=== PATIENT | male | born 1950 | race Caucasian/White ===

== ENCOUNTER 2020-12-07 08:47 | Inpatient (IN) | payer OTHER, MEDICARE, SELFPAY ==
--- NOTE | ~2020-12-07 | CT_ITS ---
EXAMINATION: CT abdomen pelvis wo con EXAM DATE: 12/08/2020 11:23 INDICATION: Nonverbal. Worsening mental status change. Clinical concern for infection TECHNIQUE: Spiral CT of the abdomen and pelvis was performed without contrast. Axial, coronal and s agittal images were reviewed. The dose-length product (DLP) for this examination was 729.79 mGy-cm. The exposure was tailored according to patient size (auto mA exposure control), and iterative recons truction (ASIR) was used as additional dose reduction technique. Comparison is made to prior examinat ion from 10/28/2019. FINDINGS: Bladder is not identified, probably been surgically resected with right ostomy, an ileal po uch. There is also a left lower quadrant colostomy, and Seb's pouch. Surgical changes are intact . There is mild right-sided hydronephrosis without obstructing stone identified, unchanged compared t o last year. No left hydronephrosis. Interval development of lobular right middle lobe nodule highly suspicious for lung cancer measuring 1.5 cm, just above the diaphragm. No other nodules to suggest this is metastatic disease. The liver, spleen, adrenal glands and pancreas are unremarkable. Gallbladder is unremarkable. No bi liary obstruction. The prostate is unremarkable. There is no retroperitoneal or pelvic lymphadenopa thy. There is mild scattered arteriosclerotic disease. Probable identification of a normal appendix. No pericecal inflammation. The stomach and small gratn l are unremarkable. There is expected amount of colonic stool. No free intraperitoneal gas. The heart is normal in size. There are no pericardial or pleural effusions. There are no osteoblastic o r osteolytic lesions identified. IMPRESSION: 1. New lobular right middle lobe nodule most consistent with primary lung cancer. 2. Mild chronic right-sided hydronephrosis without obstructing stone. 3. No acute findings. Reviewed, dictated and finalized at location B. . CREATIVE DIRECTOR IMPRESSION: 1. New lobular right middle lobe nodule most consistent with primary lung canc er. 2. Mild chronic right-sided hydronephrosis without obstructing stone. 3. No acute findings.
--- NOTE | ~2020-12-07 | CT_ITS ---
EXAMINATION: CT brain wo con EXAM DATE: 12/07/2020 11:35 INDICATION: Hallucinations, h/o metastatic colorectal cancer. Unsteady gait, fall today. Hallucinatio ns. TECHNIQUE: Spiral CT of the head was performed without contrast. Axial, coronal and sagittal images were reviewed. The dose-length product (DLP) for this examination was 354.92 mGy-cm. The exposure w as tailored according to patient size, and iterative reconstruction (ASIR) was used as additional dos e reduction technique. There is no prior study for comparison. FINDINGS: There is no acute intraparenchymal hemorrhage. No evidence of intraparenchymal brain mass lesion. No evidence of acute infarction. There is no mass effect or midline shift. The ventricles are normal in size. There are no extra-axial collections. Mild atrophy. There are no acute calvarial fractures. The orbits are unremarkable. Soft tissue is unremarkable. The visualized sinuses and ma stoid air cells are well aerated. IMPRESSION: 1. No acute intracranial findings. Reviewed, dictated and finalized at location B. KING PRESS OPERATOR
--- NOTE | ~2020-12-07 | CT_ITS ---
EXAMINATION: CT brain wo con EXAM DATE: 12/08/2020 11:23 INDICATION: Altered mental status, confusion. Nonverbal. TECHNIQUE: Spiral CT of the head was performed without contrast. Axial, coronal and sagittal images were reviewed. The dose-length product (DLP) for this examination was 354.92 mGy-cm. (Large field of view utilized due to kyphosis). The exposure was tailored according to patient size, and iterative r econstruction (ASIR) was used as additional dose reduction technique. Comparison is made to prior exa mination from 12/07/2020. FINDINGS: There is no acute intraparenchymal hemorrhage. No evidence of intraparenchymal brain mass lesion. No evidence of acute infarction. Mild cerebral atrophy. There is no mass effect or midline shift. The ventricles are normal in size. There are no extra-axial collections. Mild atrophy. There are no acute calvarial fractures. The orbits are unremarkable. Soft tissue is unremarkable. The vi sualized sinuses and mastoid air cells are well aerated. There is no significant interval change. IMPRESSION: 1. No acute intracranial findings. OR FRONT END DEVELOPER Reviewed, dictated and finalized at location B.
--- NOTE | 2020-12-07 08:51 | PC.NURSE ---
[facility] CONTACTED FOR RECORDS FROM PTS VISIT IN ER YESTERDAY.
--- NOTE | 2020-12-07 08:53 | ED.AMS ---
HPI - Altered Mental Status General Chief Complaint: Altered Mental Status Stated Complaint: AMBULANCE Time Seen by Provider: 12/07/20 08:52 Source: patient and family Mode of arrival: EMS Limitations: no limitations History of Present Illness HPI narrative: 70-year-old man with a history of Parkinson's brought to the ER today by EMS after his sister called because he continues to have hallucinations. His sister states that he has been upset because he thought they were trying to kill him and that they were abusing him. He has also been seeing people that are not present. He told us today that he woke up in a stranger's basement. His sister states this is a common finding when he has urinary tract infection. She also states that he fell out of bed this morning. Blood sugar in the ambulance was 96. Six days ago his oncologist saw him in [place] who prescribed Cipro for a presumed UTI. His symptoms persisted and he was seen at [facility] in [place] last night for this problem. He was sent home with no change in treatment much of the frustration of his sister. He has had a decreased appetite but has had no vomiting, blood in his stools, chest pain, difficulty breathing, difficulty swallowing, fever, cough or sick exposures. MD complaint: other (Hallucinations) Onset (ago): day(s) Timing confirmed by: caregiver (Sister) Severity: moderate Consistency of symptoms: waxing and waning Context: change in medication and other (Recent UTI) Associated symptoms: loss of appetite Related Data Home Medications Medication Instructions Recorded Confirmed amantadine HCl 100 mg PO TID 12/07/20 12/07/20 carbidopa-levodopa 2 tablet PO TID 12/07/20 12/07/20 ciprofloxacin HCl 500 mg PO BID 12/07/20 12/07/20 donepezil 10 mg PO HS 12/07/20 12/07/20 midodrine 5 mg PO BID 12/07/20 12/07/20 Allergies Allergy/AdvReac Type Severity Reaction Status Date / Time No Known Allergies Allergy Verified 12/07/20 09:12 Review of Systems Constitutional: Constitutional: Denies chills and Denies fever(s) Eyes: Eyes: Denies change in vision and Denies photophobia ENT: Denies dysphagia, Denies nasal congestion and Denies sore throat Cardiovascular: Cardiovascular: Denies chest pain and Denies radiating jaw, neck or arm pain Respiratory: Respiratory: Denies cough and Denies dyspnea Gastrointestinal: Gastrointestinal: Denies abdominal pain, Denies nausea and Denies vomiting Comments: No hematochezia Musculoskeletal: Musculoskeletal: Reports back pain (He states this is chronic) Integumentary/Breasts: Skin/Breast: Denies pruritus, Denies erythema and Denies rash Neurologic: Denies vertigo Hematologic/Lymphatic: Hematologic/Lymphatic: Denies easy bleeding and Denies easy bruising Allergic/Immunologic: Allergic/Immunologic: Denies lip swelling and Denies throat swelling PMFSH Past Medical History Medical History Colorectal cancer Parkinsons disease Urinary tract infection Surgical History Surgical History History of urostomy Ileostomy in place Social History Social History (Updated 12/07/20 @ 09:31 by Rommel Brown MD) Alcohol intake: former Substance use: never Living arrangements: with family Additional living arrangements comments: Lives with his sister who provides care for him. He is not ambulatory. Exam Const: General: no acute distress, alert and ill appearing chronically Orientation/consciousness: patient oriented x3 HENMT: Face and sinus: normal facial exam Mouth: Yes moist mucous membranes Throat: posterior oropharynx normal Eyes: Conjunctivae: conjunctivae normal Pupils: Equal, round and reactive pupils present EOM: EOMs intact bilaterally Resp: Effort & Inspection: normal respiratory effort and not labored Auscultation: clear to auscultation bilaterally, no rales, no rhonchi a
[2020-12-07 09:14] VITALS: BP 142/76; PULSE 85; RESP 18; TEMP 36.9; O2SAT 100
--- NOTE | 2020-12-07 09:15 | ECG_ITS ---
Measurements Intervals [place] Rate: 91 P: 48 VT: 140 QRS: -10 QRSD: 97 T: 0 QT: 354 QTc: 436 Interpretive Statements SINUS RHYTHM EARLY PRECORDIAL R/S TRANSITION VOLTAGE CRITERIA FOR LVH BORDERLINE ST-T WAVE ABNORMALITY- INFERIOR LEADS BASELINE ARTIFACT- I, II, III, AVR, AVL, AVF, V1-V6 BORDERLINE ECG Electronically Signed On 12-07-2020 10:15:50 STATUARY PAINTER by Anthony Quijano D.O.
[2020-12-07] MEDS: SODIUM CHLORIDE 0.9% IV 1,000 ML 999 ML IV CONT (09:36)
[2020-12-07 09:38] LABS: Basophils Absolute Auto 0.03 K/mm3 (0.00-0.10); Basophils Percent Auto 0.5 % (0.0-1.0); Eosinophils Absolute Auto 0.02 K/mm3 (0.02-0.50); Eosinophils Percent Auto 0.3 % (1.0-6.0); Hematocrit 35.2 % (37.0-46.0); Hemoglobin 11.3 g/dL (12.4-15.3); Immature Granulocyte Absolute 0.03 K/mm3 (0.00-0.00); Immature Granulocyte Percent A 0.5 % (0.0-0.0); Lymphocytes Absolute Auto 0.57 K/mm3 (1.10-4.50); Lymphocytes Percent Auto 9.1 % (18.0-42.0); Mean Corpuscular HGB Conc 32.1 g/dL (32.0-36.0); Mean Corpuscular Volume 93.4 fL (78.0-102.0); Mean Platelet Volume 8.8 fl (8.7-11.0); Monocytes Absolute Auto 0.68 K/mm3 (0.10-0.90); Monocytes Percent Auto 10.8 % (2.0-11.0); Neutrophils Percent Auto 78.8 % (50.0-70.0); Platelet Count Result 155 K/mm3 (150-420); Red Blood Count 3.77 M/mm3 (4.70-6.10); White Blood Count 6.3 K/mm3 (4.8-10.8)
[2020-12-07 09:53] LABS: Alanine Aminotransferase 16 U/L (16-63); Albumin Level 3.9 g/dL (3.4-5.0); Alkaline Phosphatase 148 U/L (46-116); Anion Gap 12 mmol/L (8-16); Aspartate Amino Transferase 14 U/L (15-37); Bilirubin,Total 0.7 mg/dL (0.00-1.00); Blood Urea Nitrogen 23 mg/dL (7-18); CRP 2.9 mg/dL (0.0-0.9); Calcium 9.4 mg/dL (8.5-10.1); Carbon Dioxide 26 mmol/L (21-32); Chloride 107 mmol/L (98-108); Estimated CRCL calculation 26 ml/min; Estimated Glomerular Filt Rate 25; Glucose 102 mg/dL (70-99); Lipase 50 U/L (73-393); Osmolality Calculated 303 mOsm/kg (285-295); Potassium 4.5 mmol/L (3.5-5.1); Sodium 145 mmol/L (136-145); Total Protein 7.3 g/dL (6.4-8.2); Troponin I 43.9 ng/L (0.00-60.4)
--- NOTE | 2020-12-07 09:53 | PC.NURSE ---
Pt given home morning medications per dr whitlock order. Pt given amantadine 100mg, midrodrine 5mg, and 2 tabs of carbidopa-levodopa 25/100mg po. dosages and times verified with family and pt.
[2020-12-07 09:54] LABS: INR 1.1; Partial Thromboplastin Time 26.5 SEC (23.90-30.70); Prothrombin Time 11.4 Seconds (9.50-12.10)
[2020-12-07 09:56] LABS: Lactic Acid Reflex 1.6 mmol/L (0.4-2.0)
[2020-12-07 11:02] LABS: Add Urine Microscopic? YES; Appearance Urine Clear (Clear); Bilirubin Urine Negative (Negative); Blood Urine 2+ (Negative); Color Urine Yellow (Yellow); Glucose Urine UA Negative (Negative); Ketones Urine 1+ (Negative); Leukocyte Esterase Ur Trace (Negative); Nitrate Urine Negative (Negative); Protein Urine 1+ (Negative); Specific Grav Ur >= 1.030 (1.010-1.020); Urobilinogen Urine 0.2 mg/dL (0.2-1.0); pH Urine 5.5 (5.0-8.0)
[2020-12-07 11:10] LABS: Bacteria Urine Trace /hpf; RBC Urine 21-50 /hpf (0-2)
[2020-12-07 11:15] VITALS: BP 145/97; PULSE 91; RESP 18
[2020-12-07] MEDS: SODIUM CHLORIDE 0.9% IV 1,000 ML 150 ML IV CONT (11:35)
[2020-12-07 12:20] VITALS: BP 150/89; PULSE 79; RESP 18
[2020-12-07 12:40] VITALS: BP 106/81; PULSE 95; RESP 20; TEMP 37.6; O2SAT 98; BMI 22.8
--- NOTE | 2020-12-07 12:40 | ADMGEN ---
This patient, Viktor Burk, was admitted to 2nd Floor Room 206-1 for UTI and ARF. Patient/family oriented to hospital policies and general routines including ID bracelet, bed and alarms, visiting hours, pain management, procedures, bathroom and other care routines, personal items, smoking policy, room service/diet, and visiting hours. Colostomy and Urostomy care provided. Lunch tray delivered, patient required minimal to moderate assist to eat. Call light and belongings at side. Information on how to activate the Rapid Response Team has been discussed. Patient/Family are encouraged to report perceived risks to care and to ask questions if they do not understand what they are told or what they should do.
[2020-12-07] MEDS: ENOXAPARIN 30 MG/0.3 ML SYRINGE SUB-Q (14:38)
--- NOTE | 2020-12-07 15:19 | PM.IMHP ---
H&P: HPI History of Present Illness Date/Time: 12/07/20 15:19 Chief Complaint: Hallucinations r/t possible UTI Narrative: Viktor Burk is a 70 year old male was brought to the ER by EMS for hallucinations per his sisters report. Pt was unable to provide any HPI information d/t his medical situation and this HPI is based on ER documentation, conversation with Dr. Brown, and Pt's sister. The sister was the historian for the Pt in the ER. The sister stated the following: Pt thought they were trying to kill him and they were abusing him. (on assessment there was no evidence of abuse to this Pt). Furthermore, the sister, per ER report, stated this Pt's normal status is usual when he has a UTI, he fell OOB this AM. Pt saw his Oncologist 6 days ago and was given a script for his UTI. He also went to [facility] last night and was then sent home with no changes to the Tx for his condition. Pt has had decreased appetite, no vomiting, blood in stools, CP, breathing difficulty, swallowing difficulty, fever, cough, or sick exposures. PMHx of Parkinson's Review of Systems Review of Systems: ROS unobtainable: Yes unobtainable due to medical condition PMFSH Past Medical History Medical History Colorectal cancer Parkinsons disease Urinary tract infection Surgical History Surgical History History of urostomy Ileostomy in place Social History Social History Smoking status: Never smoker Alcohol intake: never Substance use: never Living arrangements: with family Additional living arrangements comments: Lives with his sister who provides care for him. He is not ambulatory. Gender identity (if verbalized by the patient): Male Spiritual care concerns: No Meds Home Medications and Allergies Home Medications Medication Instructions Recorded Confirmed Type amantadine HCl 100 mg PO TID 12/07/20 12/07/20 History carbidopa-levodopa 2 tablet PO TID 12/07/20 12/07/20 History ciprofloxacin HCl 500 mg PO BID 12/07/20 12/07/20 History donepezil 10 mg PO HS 12/07/20 12/07/20 History midodrine 5 mg PO BID 12/07/20 12/07/20 History Allergies Allergy/AdvReac Type Severity Reaction Status Date / Time No Known Allergies Allergy Verified 12/07/20 09:12 Vital Signs Vital Signs - 24 hr 12/07/20 09:14 12/07/20 11:15 12/07/20 12:20 Temperature 98.5 F Pulse Rate 85 91 79 Respiratory Rate 18 18 18 Blood Pressure 142/76 H 145/97 H 150/89 H Pulse Oximetry 100 12/07/20 12:40 Temperature 99.6 F Pulse Rate 95 Respiratory Rate 20 Blood Pressure 106/81 Pulse Oximetry 98 Exam Const: General: no acute distress, alert and ill appearing Nutritional Appearance: average body habitus Resp: Effort & Inspection: normal respiratory effort Auscultation: clear to auscultation bilaterally Cardio: Jugular venous distension: no JVD Rate: regular rate Heart sounds: S1 normal heart sound present and S2 normal heart sound present GI: Inspection: other (Colostomy in place with pale stoma, Ileostomy in place, both draining) GI Palp: Yes Soft to palpation and No Tenderness to palpation present (GI) Auscultation: normal bowel sounds Neuro: General: oriented to person (when I called his name he looked at me, unable to speak) Speech: Other speech findings present (Neuro) (mumbled) Motor exam (neuro): Motor fasciculations present (rather mild when Pt asked to move) Extrem: General: no joint enlargement and no pedal edema H&P: Results Labs Labs: Short CBC 12/07/20 Range/Units 09:29 WBC 6.3 (4.8-10.8) K/mm3 Hgb 11.3 L (12.4-15.3) g/dL Hct 35.2 L (37.0-46.0) % Plt Count 155 (150-420) K/mm3 [facility] 12/07/20 09:29 Sodium 145 Potassium 4.5 Chloride 107 Carbon Dioxide 26 BUN 23 H Creatinine 2.52 H Glu
[2020-12-07 16:40] VITALS: BP 146/99; PULSE 83; RESP 20; TEMP 37.4; O2SAT 97
[2020-12-07] MEDS: CIPROFLOXACIN 500 MG TAB PO (19:49)
--- NOTE | 2020-12-07 20:00 | PC.NURSE ---
Patient is calling out and confused. Appears to be experiencing hallucinations, Becomes verbally aggressive attempts made to exit bed.
[2020-12-07] MEDS: SODIUM CHLORIDE 0.9% IV 1,000 ML 100 ML (20:12)
[2020-12-07] MEDS: DONEPEZIL HCL 5 MG TABLET 10 MG PO (20:57)
[2020-12-07] MEDS: ACETAMINOPHEN 500 MG TABLET 1000 MG PO (20:57)
--- NOTE | 2020-12-07 22:00 | PC.NURSE ---
Patient continues to be confused-calls out, hallucinations. Can become belligerent when redirected.
[2020-12-07 23:54] VITALS: BP 149/94; PULSE 82; RESP 18; TEMP 37.7; O2SAT 98
--- NOTE | 2020-12-08 00:37 | PC.NURSE ---
Patient continues to be experience confusion. Slamming elbo against railing. Attempting to exit bed.
--- NOTE | 2020-12-08 03:38 | PC.NURSE ---
Patient resting. Continues to have spasm of legs anr arms Fluids continue as ordered
[2020-12-08] MEDS: SODIUM CHLORIDE 0.9% IV 1,000 ML 100 ML IV CONT ×2 (05:30→17:19)
[2020-12-08 05:36] LABS: Basophils Absolute Auto 0.03 K/mm3 (0.00-0.10); Basophils Percent Auto 0.7 % (0.0-1.0); Eosinophils Absolute Auto 0.17 K/mm3 (0.02-0.50); Eosinophils Percent Auto 3.8 % (1.0-6.0); Hematocrit 31.8 % (37.0-46.0); Hemoglobin 9.9 g/dL (12.4-15.3); Immature Granulocyte Absolute 0.01 K/mm3 (0.00-0.00); Immature Granulocyte Percent A 0.2 % (0.0-0.0); Lymphocytes Absolute Auto 0.88 K/mm3 (1.10-4.50); Lymphocytes Percent Auto 19.8 % (18.0-42.0); Mean Corpuscular HGB Conc 31.1 g/dL (32.0-36.0); Mean Corpuscular Hemoglobin 29.6 pg (27.0-31.0); Mean Corpuscular Volume 95.2 fL (78.0-102.0); Mean Platelet Volume 9.2 fl (8.7-11.0); Monocytes Absolute Auto 0.44 K/mm3 (0.10-0.90); Monocytes Percent Auto 9.9 % (2.0-11.0); Neutrophils Absolute Auto 2.9 K/mm3 (1.7-7.2); Neutrophils Percent Auto 65.6 % (50.0-70.0); Platelet Count Result 125 K/mm3 (150-420); Red Blood Count 3.34 M/mm3 (4.70-6.10); Red Cell Distribution Width 13.9 % (11.6-14.4); White Blood Count 4.4 K/mm3 (4.8-10.8)
[2020-12-08 05:52] LABS: Alanine Aminotransferase 9 U/L (16-63); Albumin Level 3.3 g/dL (3.4-5.0); Alkaline Phosphatase 127 U/L (46-116); Anion Gap 14 mmol/L (8-16); Aspartate Amino Transferase 22 U/L (15-37); Bilirubin,Total 0.5 mg/dL (0.00-1.00); Blood Urea Nitrogen 21 mg/dL (7-18); Calcium 8.3 mg/dL (8.5-10.1); Carbon Dioxide 21 mmol/L (21-32); Chloride 108 mmol/L (98-108); Estimated CRCL calculation 33 ml/min; Estimated Glomerular Filt Rate 33; Glucose 71 mg/dL (70-99); Osmolality Calculated 297 mOsm/kg (285-295); Potassium 4.2 mmol/L (3.5-5.1); Sodium 143 mmol/L (136-145); Total Protein 6.2 g/dL (6.4-8.2)
[2020-12-08 07:50] VITALS: BP 165/101; PULSE 81; RESP 20; TEMP 37.1; O2SAT 100
[2020-12-08 09:14] LABS: Hemoglobin 10.4 g/dL (12.4-15.3); Mean Corpuscular HGB Conc 31.5 g/dL (32.0-36.0); Mean Corpuscular Hemoglobin 29.9 pg (27.0-31.0); Mean Corpuscular Volume 94.8 fL (78.0-102.0); Mean Platelet Volume 9.2 fl (8.7-11.0); Platelet Count Result 133 K/mm3 (150-420); Red Blood Count 3.48 M/mm3 (4.70-6.10); Red Cell Distribution Width 13.8 % (11.6-14.4); White Blood Count 5.8 K/mm3 (4.8-10.8)
[2020-12-08] MEDS: amantadine HCL 100 MG CAPSULE PO ×3 (09:38→17:19)
[2020-12-08] MEDS: CARBIDOPA/LEVODOPA 25/100 MG CR TABLET 2 TABLET PO ×3 (09:39→17:19)
[2020-12-08] MEDS: MIDODRINE HCL 2.5 MG TABLET 5 MG PO ×2 (09:39→17:19)
[2020-12-08] MEDS: CIPROFLOXACIN 500 MG TAB PO (09:39)
[2020-12-08 09:47] LABS: Ammonia 22 umol/L (11-32); Magnesium 1.9 mg/dL (1.8-2.4)
--- NOTE | 2020-12-08 11:20 | WPDPN ---
Progress Note: A&P Assessment and Plan (1) Acute UTI: Code(s): N39.0 - Urinary tract infection, site not specified Status: Acute Assessment and Plan: Ciprofloxacin 500 mg daily, and vancomycin with pharm to dose and follow, Urine Cx Pending, Urostomy in place UA positive for blood leukocyte Estrace, RBCs WBCs (2) Acute on chronic kidney failure: Qualifiers: Acute renal failure type: unspecified Chronic kidney disease stage: unspecified stage Qualified Code(s): N17.9 - Acute kidney failure, unspecified; N18.9 - Chronic kidney disease, unspecified Code(s): N17.9 - Acute kidney failure, unspecified; N18.9 - Chronic kidney disease, unspecified Status: Acute Assessment and Plan: Improving on admission pt received 1 L NS bolus Continue IV hydration BUN 23-->, Cr 2.52-->2.02, eCrCl 26-->33, eGFR 25-->33, Continue monitor I&O, avoid nephrotoxic medications Renal dose medication (3) Delirium due to general medical condition: Code(s): F05 - Delirium due to known physiological condition Status: Acute Assessment and Plan: Possibly secondary to urinary tract infection versus noncompliant with medication versus acute kidney injury CT of head on 12/07/2020-unremarkable, repeat pending CT of the abdomen and pelvis pending Ammonia and electrolytes within normal limits Continue neurochecks (4) Parkinsons disease: Code(s): G20 - Parkinson's disease Status: Acute Assessment and Plan: 12/07/2020 Continue Amentadine, and Sinamet increased to home dosage (5) Discoloration of skin of finger: Code(s): L81.9 - Disorder of pigmentation, unspecified Status: Acute Assessment and Plan: Possibly secondary to RA versus hypothyroidism versus vascular disease TSH, ESR pending CRP on admission elevated Lactic acid within normal limits Patient does not appear to have any limitation with movement in his fingers Review of Systems Review of Systems: ROS unobtainable: Yes unobtainable due to mental status Exam Narrative: Exam Narrative: GENERAL: This is a well-nourished, well-developed patient, in no apparent distress. HEAD: normocephalic, atraumatic. EYES: PERRL. Sclera clear/white. Vision is grossly intact. EARS: External ears normal, auditory canals clear and without drainage, TMs normal without perforation. Hearing grossly intact. NOSE: External nose normal with no obvious nasal discharge, nares without redness, no rhinorrhea. THROAT: Mucous membranes moist, posterior pharynx clear. NECK: Neck supple, non-tender without lymphadenopathy, masses or thyromegaly. CARDIOVASCULAR: Regular rate and rhythm without murmurs, gallops, or rubs. RESPIRATORY: Clear to auscultation. Breath sounds equal bilaterally. No wheezes, rales, or rhonchi. GASTROINTESTINAL: Abdomen soft, non-tender, nondistended. Bowel sounds are active. No hepato-splenomegaly, or palpable masses. No guarding. SKIN: warm, intact with no suspicious lesions or rash, good texture and turgor. Discoloration fingers NEURO: Patient with involuntary body movement and lethargic EXTREMITIES: Normal range of motion. No edema. No calf tenderness. Negative Homans sign bilaterally. BACK: Nontender without deformity or crepitance. No flank tenderness. Objective Data Vital Signs Vital Signs: Vital Signs - 24 hr 12/07/20 12:20 12/07/20 12:40 12/07/20 16:40 Temperature 99.6 F 99.3 F Pulse Rate 79 95 83 Respiratory Rate 18 20 20 Blood Pressure 150/89 H 106/81 146/99 H Pulse Oximetry 98 97 12/07/20 23:54 12/08/20 07:50 Temperature 99.9 F H 98.8 F Pulse Rate 82 81 Respiratory Rate 18 20 Blood Pressure 149/94 H 165/101 H Pulse Oximetry 98 100 Intake/Output Intake/Output: Intake & Output 12/05/20 12/06/20 12/07/20 12/08/20 23:59 23:59 23:59 23:59 Intake Total 2970 1300 Output Total 325 500 Balance 2645 800 Meds/Results Medications: Active Me
[2020-12-08 11:59] LABS: Thyroid Stimulating Hormone Reflex 0.31 u/IU/mL (0.36-3.74)
[2020-12-08 12:15] LABS: Free T4 Free Thyroxine Reflex 1.14 ng/dL (0.76-1.46)
[2020-12-08 12:38] LABS: Erythrocyte Sedimentation Rate 28 mm/hr (0-20)
[2020-12-08] MEDS: ENOXAPARIN 30 MG/0.3 ML SYRINGE SUB-Q (13:37)
[2020-12-08 16:40] VITALS: BP 141/70; PULSE 64; RESP 18; TEMP 36.6; O2SAT 100
[2020-12-08] MEDS: DONEPEZIL HCL 5 MG TABLET 10 MG PO (21:33)
[2020-12-09] VITALS: BP 164/75; PULSE 54; RESP 18; TEMP 36.7; O2SAT 100
[2020-12-09] MEDS: SODIUM CHLORIDE 0.9% IV 1,000 ML 100 ML IV CONT (02:47)
[2020-12-09 06:02] LABS: Hematocrit 33.6 % (37.0-46.0); Hemoglobin 10.8 g/dL (12.4-15.3); Mean Corpuscular HGB Conc 32.1 g/dL (32.0-36.0); Mean Corpuscular Hemoglobin 30.1 pg (27.0-31.0); Mean Corpuscular Volume 93.6 fL (78.0-102.0); Mean Platelet Volume 9.3 fl (8.7-11.0); Platelet Count Result 125 K/mm3 (150-420); Red Blood Count 3.59 M/mm3 (4.70-6.10); Red Cell Distribution Width 13.6 % (11.6-14.4); White Blood Count 7.7 K/mm3 (4.8-10.8)
[2020-12-09 06:26] LABS: Albumin Level 3.1 g/dL (3.4-5.0); Alkaline Phosphatase 122 U/L (46-116); Anion Gap 12 mmol/L (8-16); Aspartate Amino Transferase 24 U/L (15-37); Bilirubin,Total 0.4 mg/dL (0.00-1.00); Blood Urea Nitrogen 19 mg/dL (7-18); Calcium 8.5 mg/dL (8.5-10.1); Carbon Dioxide 22 mmol/L (21-32); Chloride 106 mmol/L (98-108); Estimated CRCL calculation 43 ml/min; Estimated Glomerular Filt Rate 45; Glucose 88 mg/dL (70-99); Osmolality Calculated 291 mOsm/kg (285-295); Potassium 3.6 mmol/L (3.5-5.1); Sodium 140 mmol/L (136-145); Total Protein 5.6 g/dL (6.4-8.2)
[2020-12-09 06:52] LABS: Alanine Aminotransferase 11 U/L (16-63)
[2020-12-09 07:30] VITALS: BP 169/76; PULSE 61; RESP 18; TEMP 36.5; O2SAT 100
[2020-12-09] MEDS: CARBIDOPA/LEVODOPA 25/100 MG CR TABLET 2 TABLET PO ×3 (08:41→17:00)
[2020-12-09] MEDS: MIDODRINE HCL 2.5 MG TABLET 5 MG PO ×2 (08:42→17:00)
[2020-12-09] MEDS: amantadine HCL 100 MG CAPSULE PO ×3 (08:45→17:00)
--- NOTE | 2020-12-09 12:42 | P.PN_ITS ---
Progress Note: A&P Assessment and Plan (1) Acute UTI: Code(s): N39.0 - Urinary tract infection, site not specified <ROYA Mckinley - Last Filed: 12/09/20 12:49> Status: Acute <Francis YelitzaROYA Ayala - Last Filed: 12/09/20 12:49> Assessment and Plan: * Ciprofloxacin 500 mg completed , and vancomycin with pharm to dose and follow, * Urine Cx Pending, * Culture from outside hospital with the growth Klebsiella, enterococcus faecalis * Urostomy in place * UA positive for blood leukocyte Estrace, RBCs WBCs <ROYA Mckinley - Last Filed: 12/09/20 12:49> (2) Acute on chronic kidney failure: Qualifiers: Acute renal failure type: unspecified Chronic kidney disease stage: unspecified stage Qualified Code(s): N17.9 - Acute kidney failure, unspecified; N18.9 - Chronic kidney disease, unspecified <ROYA Mckinley - Last Filed: 12/09/20 12:49> Code(s): N17.9 - Acute kidney failure, unspecified; N18.9 - Chronic kidney disease, unspecified <ROYA Mckinley - Last Filed: 12/09/20 12:49> Status: Acute <ROYA Mckinley - Last Filed: 12/09/20 12:49> Assessment and Plan: * Improving * on admission pt received 1 L NS bolus * Continue IV hydration * BUN 23--> -->19, Cr 2.52-->2.02-->1.53, eCrCl 26-->33-->43, eGFR 25-->33-->45, * Continue monitor I&O, * avoid nephrotoxic medications * Renal dose medication <ROYA Mckinley - Last Filed: 12/09/20 12:49> (3) Delirium due to general medical condition: Code(s): F05 - Delirium due to known physiological condition <ROYA Mckinley - Last Filed: 12/09/20 12:49> Status: Acute <ROYA Mckinley - Last Filed: 12/09/20 12:49> Assessment and Plan: * Resolved * Possibly secondary to urinary tract infection versus noncompliant with medication versus acute kidney injury * CT of head on 12/07/2020-unremarkable, repeat pending * CT of the abdomen and pelvis pending * Ammonia and electrolytes within normal limits * Continue neurochecks <Francis Stanton ROYA - Last Filed: 12/09/20 12:49> (4) Parkinsons disease: Code(s): G20 - Parkinson's disease <Francis Stanton ROYA - Last Filed: 12/09/20 12:49> Status: Acute <Francis Stanton ROYA - Last Filed: 12/09/20 12:49> Assessment and Plan: 12/07/2020 Continue Amentadine, and Sinamet increased to home dosage <Francis Stanton ROYA - Last Filed: 12/09/20 12:49> (5) Discoloration of skin of finger: Code(s): L81.9 - Disorder of pigmentation, unspecified <Francis Stanton ROYA - Last Filed: 12/09/20 12:49> Status: Acute <Francis Stanton ROYA - Last Filed: 12/09/20 12:49> Assessment and Plan: * Possibly secondary to RA versus hypothyroidism versus vascular disease * TSH slightly decreased not significantly, * CRP on admission elevated * Lactic acid within normal limits * Patient does not appear to have any limitation with movement in his fingers <Francis TorreGLENNY AyalaKemi - Last Filed: 12/09/20 12:49> Review of Systems Review of Systems: All systems reviewed & are unremarkable except as noted in HPI and below (12 point system review) <Francis Stanton HEALTH CENTER ASSOCIATEKemi - Last Filed: 12/09/20 12:49> Exam Narrative: Exam Narrative: GENERAL: This is a well-nourished, well-developed patient, in no apparent distress. HEAD: normocephalic, atraumatic. EYES: PERRL. Sclera clear/white. Vision is grossly intact. EARS: External ears norm
--- NOTE | 2020-12-09 12:42 | WPDPN ---
Progress Note: A&P Assessment and Plan (1) Acute UTI: Code(s): N39.0 - Urinary tract infection, site not specified <ROYA Mckinley - Last Filed: 12/09/20 12:49> Status: Acute <Francis YelitzaROYA Ayala - Last Filed: 12/09/20 12:49> Assessment and Plan: Ciprofloxacin 500 mg completed , and vancomycin with pharm to dose and follow, Urine Cx Pending, Culture from outside hospital with the growth Klebsiella, enterococcus faecalis Urostomy in place UA positive for blood leukocyte Estrace, RBCs WBCs <ROYA Mckinley - Last Filed: 12/09/20 12:49> (2) Acute on chronic kidney failure: Qualifiers: Acute renal failure type: unspecified Chronic kidney disease stage: unspecified stage Qualified Code(s): N17.9 - Acute kidney failure, unspecified; N18.9 - Chronic kidney disease, unspecified <ROYA Mckinley - Last Filed: 12/09/20 12:49> Code(s): N17.9 - Acute kidney failure, unspecified; N18.9 - Chronic kidney disease, unspecified <ROYA Mckinley - Last Filed: 12/09/20 12:49> Status: Acute <ROYA Mckinley - Last Filed: 12/09/20 12:49> Assessment and Plan: Improving on admission pt received 1 L NS bolus Continue IV hydration BUN 23--> -->19, Cr 2.52-->2.02-->1.53, eCrCl 26-->33-->43, eGFR 25-->33-->45, Continue monitor I&O, avoid nephrotoxic medications Renal dose medication <ROYA Mckinley - Last Filed: 12/09/20 12:49> (3) Delirium due to general medical condition: Code(s): F05 - Delirium due to known physiological condition <ROYA Mckinley - Last Filed: 12/09/20 12:49> Status: Acute <ROYA Mckinley - Last Filed: 12/09/20 12:49> Assessment and Plan: Resolved Possibly secondary to urinary tract infection versus noncompliant with medication versus acute kidney injury CT of head on 12/07/2020-unremarkable, repeat pending CT of the abdomen and pelvis pending Ammonia and electrolytes within normal limits Continue neurochecks <Francis Stanton ROYA - Last Filed: 12/09/20 12:49> (4) Parkinsons disease: Code(s): G20 - Parkinson's disease <Francis Stanton ROYA - Last Filed: 12/09/20 12:49> Status: Acute <Francis Stanton ROYA - Last Filed: 12/09/20 12:49> Assessment and Plan: 12/07/2020 Continue Amentadine, and Sinamet increased to home dosage <Francis Stanton ROYA - Last Filed: 12/09/20 12:49> (5) Discoloration of skin of finger: Code(s): L81.9 - Disorder of pigmentation, unspecified <Francis Stanton ROYA - Last Filed: 12/09/20 12:49> Status: Acute <Francis Stanton ROYA - Last Filed: 12/09/20 12:49> Assessment and Plan: Possibly secondary to RA versus hypothyroidism versus vascular disease TSH slightly decreased not significantly, CRP on admission elevated Lactic acid within normal limits Patient does not appear to have any limitation with movement in his fingers <Francis Stanton ROYA - Last Filed: 12/09/20 12:49> Review of Systems Review of Systems: All systems reviewed & are unremarkable except as noted in HPI and below (12 point system review) <Francis Stanton ROYA - Last Filed: 12/09/20 12:49> Exam Narrative: Exam Narrative: GENERAL: This is a well-nourished, well-developed patient, in no apparent distress. HEAD: normocephalic, atraumatic. EYES: PERRL. Sclera clear/white. Vision is grossly intact. EARS: External ears normal, auditory canals clear and without drainage, TMs normal without perforation. Hearing grossly intact. NOSE: External nose normal with no obvious nasal discharge, nares without redness, no rhinorrhea. THROAT: Mucous membranes moist, posterior pharynx clear. NECK: Neck supple, non-tender without lymphadenopathy, masses or thyromegaly. CARDIOVASCULAR: Regular rate and rhythm without murmurs, gallops, o
[2020-12-09] MEDS: ENOXAPARIN 30 MG/0.3 ML SYRINGE SUB-Q (13:54)
[2020-12-09 16:00] VITALS: BP 140/70; PULSE 71; RESP 16; TEMP 36.6; O2SAT 100
--- NOTE | 2020-12-09 18:39 | PC.NURSE ---
Urostomy right lower abdomen removed. Cleansed area with soap and water. Skin prep applied to skin. Urostomy bag placed without difficulty. Skin under the ostomy bag intact. No redness or open areas noted.
[2020-12-09] MEDS: DONEPEZIL HCL 5 MG TABLET 10 MG PO (21:56)
[2020-12-10] VITALS: BP 140/75; PULSE 58; RESP 18; TEMP 36.2; O2SAT 97
[2020-12-10] MEDS: ACETAMINOPHEN 500 MG TABLET 1000 MG PO ×2 (04:45→21:03)
[2020-12-10 05:46] LABS: Hematocrit 32.8 % (37.0-46.0); Hemoglobin 10.3 g/dL (12.4-15.3); Immature Platelet Fraction Pct 1.2 % (1.0-7.0); Mean Corpuscular HGB Conc 31.4 g/dL (32.0-36.0); Mean Corpuscular Hemoglobin 28.9 pg (27.0-31.0); Mean Corpuscular Volume 92.1 fL (78.0-102.0); Mean Platelet Volume 9.8 fl (8.7-11.0); Platelet Count Result 150 K/mm3 (150-420); Red Blood Count 3.56 M/mm3 (4.70-6.10); Red Cell Distribution Width 13.6 % (11.6-14.4); White Blood Count 5.1 K/mm3 (4.8-10.8)
[2020-12-10 06:09] LABS: Alanine Aminotransferase 10 U/L (16-63); Alkaline Phosphatase 120 U/L (46-116); Anion Gap 12 mmol/L (8-16); Aspartate Amino Transferase 15 U/L (15-37); Bilirubin,Total 0.4 mg/dL (0.00-1.00); Blood Urea Nitrogen 14 mg/dL (7-18); Calcium 8.5 mg/dL (8.5-10.1); Carbon Dioxide 24 mmol/L (21-32); Chloride 105 mmol/L (98-108); Estimated CRCL calculation 44 ml/min; Estimated Glomerular Filt Rate 46; Glucose 141 mg/dL (70-99); Osmolality Calculated 294 mOsm/kg (285-295); Potassium 3.3 mmol/L (3.5-5.1); Sodium 141 mmol/L (136-145); Total Protein 5.6 g/dL (6.4-8.2)
[2020-12-10 08:00] VITALS: BP 134/78; PULSE 78; RESP 18; TEMP 36.6; O2SAT 96
[2020-12-10] MEDS: MIDODRINE HCL 2.5 MG TABLET 5 MG PO ×2 (09:02→17:14)
[2020-12-10] MEDS: CARBIDOPA/LEVODOPA 25/100 MG CR TABLET 2 TABLET PO ×3 (09:03→17:14)
[2020-12-10] MEDS: amantadine HCL 100 MG CAPSULE PO ×3 (09:04→17:29)
[2020-12-10] MEDS: POTASSIUM CHLORIDE 20 MEQ TABLET 40 MEQ PO (10:19)
--- NOTE | 2020-12-10 13:09 | P.PN_ITS ---
Progress Note: A&P Assessment and Plan (1) Acute UTI: Code(s): N39.0 - Urinary tract infection, site not specified Status: Acute Assessment and Plan: * Ciprofloxacin 500 mg completed , and vancomycin with pharm to dose and follow, * Urine Cx with the growth of Enterococcus faecalis and faecium. Patient will need to remain hospitalized for IV antibiotics of vancomycin for at least 5 days * Culture from outside hospital with the growth Klebsiella, enterococcus faecalis * Urostomy in place * UA positive for blood leukocyte Estrace, RBCs WBCs (2) Acute on chronic kidney failure: Qualifiers: Acute renal failure type: unspecified Chronic kidney disease stage: unspecified stage Qualified Code(s): N17.9 - Acute kidney failure, unspecified; N18.9 - Chronic kidney disease, unspecified Code(s): N17.9 - Acute kidney failure, unspecified; N18.9 - Chronic kidney disease, unspecified Status: Acute Assessment and Plan: * Improving * on admission pt received 1 L NS bolus * Continue IV hydration * BUN 23--> -->19-->14, Cr 2.52-->2.02-->1.53-->1.51, eCrCl 26-->33-->43-->44, eGFR 25-->33-->45-->46, * Continue monitor I&O, * avoid nephrotoxic medications * Renal dose medication (3) Delirium due to general medical condition: Code(s): F05 - Delirium due to known physiological condition Status: Acute Assessment and Plan: * Resolved * Possibly secondary to urinary tract infection versus noncompliant with medication versus acute kidney injury * CT of head on 12/07/2020-unremarkable, repeat pending * CT of the abdomen and pelvis -no acute findings * Ammonia and electrolytes within normal limits * Continue neurochecks (4) Parkinsons disease: Code(s): G20 - Parkinson's disease Status: Acute Assessment and Plan: 12/07/2020 Continue Amentadine, and Sinamet increased to home dosage (5) Discoloration of skin of finger: Code(s): L81.9 - Disorder of pigmentation, unspecified Status: Acute Assessment and Plan: * Resolved * Possibly secondary to RA versus hypothyroidism versus vascular disease * TSH slightly decreased not significantly, * CRP on admission elevated * Lactic acid within normal limits * Patient does not appear to have any limitation with movement in his fingers Review of Systems Review of Systems: All systems reviewed & are unremarkable except as noted in HPI and below (12 point system review) Exam Narrative: Exam Narrative: GENERAL: This is a well-nourished, well-developed patient, in no apparent distress. HEAD: normocephalic, atraumatic. EYES: PERRL. Sclera clear/white. Vision is grossly intact. EARS: External ears normal, auditory canals clear and without drainage, TMs normal without perforation. Hearing grossly intact. NOSE: External nose normal with no obvious nasal discharge, nares without redness, no rhinorrhea. THROAT: Mucous membranes moist, posterior pharynx clear. NECK: Neck supple, non-tender without lymphadenopathy, masses or thyromegaly. CARDIOVASCULAR: Regular rate and rhythm without murmurs, gallops, or rubs. RESPIRATORY: Clear to auscultation. Breath sounds equal bilaterally. No wheezes, rales, or rhonchi. GASTROINTESTINAL: Abdomen soft, non-tender, nondistended. Bowel sounds are active. No hepato-splenomegaly, or palpable masses. Urostomy and colostomy in place SKIN: warm, intact with no suspicious lesions or rash, good texture and turgor. Discoloration fingers NEURO: P alert and orientated x4 today EXTREMITIES: Normal ran
--- NOTE | 2020-12-10 13:09 | WPDPN ---
Progress Note: A&P Assessment and Plan (1) Acute UTI: Code(s): N39.0 - Urinary tract infection, site not specified Status: Acute Assessment and Plan: Ciprofloxacin 500 mg completed , and vancomycin with pharm to dose and follow, Urine Cx with the growth of Enterococcus faecalis and faecium. Patient will need to remain hospitalized for IV antibiotics of vancomycin for at least 5 days Culture from outside hospital with the growth Klebsiella, enterococcus faecalis Urostomy in place UA positive for blood leukocyte Estrace, RBCs WBCs (2) Acute on chronic kidney failure: Qualifiers: Acute renal failure type: unspecified Chronic kidney disease stage: unspecified stage Qualified Code(s): N17.9 - Acute kidney failure, unspecified; N18.9 - Chronic kidney disease, unspecified Code(s): N17.9 - Acute kidney failure, unspecified; N18.9 - Chronic kidney disease, unspecified Status: Acute Assessment and Plan: Improving on admission pt received 1 L NS bolus Continue IV hydration BUN 23--> -->19-->14, Cr 2.52-->2.02-->1.53-->1.51, eCrCl 26-->33-->43-->44, eGFR 25-->33-->45-->46, Continue monitor I&O, avoid nephrotoxic medications Renal dose medication (3) Delirium due to general medical condition: Code(s): F05 - Delirium due to known physiological condition Status: Acute Assessment and Plan: Resolved Possibly secondary to urinary tract infection versus noncompliant with medication versus acute kidney injury CT of head on 12/07/2020-unremarkable, repeat pending CT of the abdomen and pelvis -no acute findings Ammonia and electrolytes within normal limits Continue neurochecks (4) Parkinsons disease: Code(s): G20 - Parkinson's disease Status: Acute Assessment and Plan: 12/07/2020 Continue Amentadine, and Sinamet increased to home dosage (5) Discoloration of skin of finger: Code(s): L81.9 - Disorder of pigmentation, unspecified Status: Acute Assessment and Plan: Resolved Possibly secondary to RA versus hypothyroidism versus vascular disease TSH slightly decreased not significantly, CRP on admission elevated Lactic acid within normal limits Patient does not appear to have any limitation with movement in his fingers Review of Systems Review of Systems: All systems reviewed & are unremarkable except as noted in HPI and below (12 point system review) Exam Narrative: Exam Narrative: GENERAL: This is a well-nourished, well-developed patient, in no apparent distress. HEAD: normocephalic, atraumatic. EYES: PERRL. Sclera clear/white. Vision is grossly intact. EARS: External ears normal, auditory canals clear and without drainage, TMs normal without perforation. Hearing grossly intact. NOSE: External nose normal with no obvious nasal discharge, nares without redness, no rhinorrhea. THROAT: Mucous membranes moist, posterior pharynx clear. NECK: Neck supple, non-tender without lymphadenopathy, masses or thyromegaly. CARDIOVASCULAR: Regular rate and rhythm without murmurs, gallops, or rubs. RESPIRATORY: Clear to auscultation. Breath sounds equal bilaterally. No wheezes, rales, or rhonchi. GASTROINTESTINAL: Abdomen soft, non-tender, nondistended. Bowel sounds are active. No hepato-splenomegaly, or palpable masses. Urostomy and colostomy in place SKIN: warm, intact with no suspicious lesions or rash, good texture and turgor. Discoloration fingers NEURO: P alert and orientated x4 today EXTREMITIES: Normal range of motion. No edema. No calf tenderness. Negative Homans sign bilaterally. BACK: Nontender without deformity or crepitance. No flank tenderness. Objective Data Vital Signs Vital Signs: Vital Signs - 24 hr 12/09/20 16:00 12/10/20 00:00 12/10/20 08:00 Temperature 97.9 F 97.2 F L 98 F Pulse Rate 71 58 L 78 Respiratory Rate 16 18 18 Blood Pressure 140/70 140/75 134/78 Pulse Oximetry 100 97 96 Intake/Out
[2020-12-10] MEDS: ENOXAPARIN 30 MG/0.3 ML SYRINGE SUB-Q (14:37)
[2020-12-10 16:00] VITALS: BP 132/70; PULSE 78; TEMP 36.6; O2SAT 96
[2020-12-10] MEDS: DONEPEZIL HCL 5 MG TABLET 10 MG PO (21:03)
[2020-12-10 22:28] LABS: Vancomycin Trough 15.1 ug/mL (10.0-15.0)
--- NOTE | 2020-12-10 22:52 | PC.NURSE ---
Spoke with [facility] and reported Vancomycin Trough 15.1. Reji stated to go ahead and hang the current dose and he may have the trough rechecked a little sooner to be sure it stays close to range.
[2020-12-11] VITALS: BP 146/73; PULSE 63; RESP 14; TEMP 37; O2SAT 100
[2020-12-11 06:06] LABS: Hematocrit 30.8 % (37.0-46.0); Hemoglobin 9.9 g/dL (12.4-15.3); Mean Corpuscular HGB Conc 32.1 g/dL (32.0-36.0); Mean Corpuscular Hemoglobin 29.9 pg (27.0-31.0); Mean Corpuscular Volume 93.1 fL (78.0-102.0); Mean Platelet Volume 9.5 fl (8.7-11.0); Platelet Count Result 140 K/mm3 (150-420); Red Blood Count 3.31 M/mm3 (4.70-6.10); Red Cell Distribution Width 13.9 % (11.6-14.4); White Blood Count 4.8 K/mm3 (4.8-10.8)
[2020-12-11 06:25] LABS: Alanine Aminotransferase 8 U/L (16-63); Alkaline Phosphatase 112 U/L (46-116); Anion Gap 9 mmol/L (8-16); Aspartate Amino Transferase 11 U/L (15-37); Bilirubin,Total 0.3 mg/dL (0.00-1.00); Blood Urea Nitrogen 13 mg/dL (7-18); Calcium 8.4 mg/dL (8.5-10.1); Carbon Dioxide 26 mmol/L (21-32); Chloride 107 mmol/L (98-108); Estimated CRCL calculation 43 ml/min; Estimated Glomerular Filt Rate 45; Glucose 100 mg/dL (70-99); Osmolality Calculated 294 mOsm/kg (285-295); Potassium 3.8 mmol/L (3.5-5.1); Sodium 142 mmol/L (136-145)
[2020-12-11 07:35] VITALS: BP 134/60; PULSE 60; RESP 18; TEMP 37.2; O2SAT 98
[2020-12-11] MEDS: CARBIDOPA/LEVODOPA 25/100 MG CR TABLET 2 TABLET PO ×3 (08:25→16:53)
[2020-12-11] MEDS: MIDODRINE HCL 2.5 MG TABLET 5 MG PO ×2 (08:25→16:53)
[2020-12-11] MEDS: POTASSIUM CHLORIDE 20 MEQ TABLET 40 MEQ PO (08:26)
[2020-12-11] MEDS: amantadine HCL 100 MG CAPSULE PO ×3 (08:26→16:53)
--- NOTE | 2020-12-11 10:15 | WPDPN ---
Progress Note: A&P Assessment and Plan (1) Acute UTI: Code(s): N39.0 - Urinary tract infection, site not specified Status: Acute Assessment and Plan: Cipro completed 5 days of vancomycin also completed Urine Cx with the growth of Enterococcus faecalis and faecium. Culture from outside hospital with the growth Klebsiella, enterococcus faecalis Urostomy in place UA positive for blood leukocyte Estrace, RBCs WBCs (2) Acute on chronic kidney failure: Qualifiers: Acute renal failure type: unspecified Chronic kidney disease stage: unspecified stage Qualified Code(s): N17.9 - Acute kidney failure, unspecified; N18.9 - Chronic kidney disease, unspecified Code(s): N17.9 - Acute kidney failure, unspecified; N18.9 - Chronic kidney disease, unspecified Status: Acute Assessment and Plan: Improving on admission pt received 1 L NS bolus Continue IV hydration BUN 23--> -->19-->14, Cr 2.52-->2.02-->1.53-->1.51, eCrCl 26-->33-->43-->44, eGFR 25-->33-->45-->46, creatinine baseline appears to be 1.50 (3) Delirium due to general medical condition: Code(s): F05 - Delirium due to known physiological condition Status: Acute Assessment and Plan: Resolved Possibly secondary to urinary tract infection versus noncompliant with medication versus acute kidney injury CT of head on 12/07/2020-unremarkable, repeat pending CT of the abdomen and pelvis -no acute findings Ammonia and electrolytes within normal limits Continue neurochecks (4) Parkinsons disease: Code(s): G20 - Parkinson's disease Status: Acute Assessment and Plan: 12/07/2020 Continue Amentadine, and Sinamet increased to home dosage (5) Discoloration of skin of finger: Code(s): L81.9 - Disorder of pigmentation, unspecified Status: Acute Assessment and Plan: Resolved Possibly secondary to RA versus hypothyroidism versus vascular disease TSH slightly decreased not significantly, CRP on admission elevated Lactic acid within normal limits Patient does not appear to have any limitation with movement in his fingers Review of Systems Review of Systems: All systems reviewed & are unremarkable except as noted in HPI and below (12 point system review) Exam Narrative: Exam Narrative: GENERAL: This is a well-nourished, well-developed patient, in no apparent distress. HEAD: normocephalic, atraumatic. EYES: PERRL. Sclera clear/white. Vision is grossly intact. EARS: External ears normal, auditory canals clear and without drainage, TMs normal without perforation. Hearing grossly intact. NOSE: External nose normal with no obvious nasal discharge, nares without redness, no rhinorrhea. THROAT: Mucous membranes moist, posterior pharynx clear. NECK: Neck supple, non-tender without lymphadenopathy, masses or thyromegaly. CARDIOVASCULAR: Regular rate and rhythm without murmurs, gallops, or rubs. RESPIRATORY: Clear to auscultation. Breath sounds equal bilaterally. No wheezes, rales, or rhonchi. GASTROINTESTINAL: Abdomen soft, non-tender, nondistended. Bowel sounds are active. No hepato-splenomegaly, or palpable masses. Urostomy and colostomy in place SKIN: warm, intact with no suspicious lesions or rash, good texture and turgor. Discoloration fingers NEURO: P alert and orientated x4 today EXTREMITIES: Normal range of motion. No edema. No calf tenderness. Negative Homans sign bilaterally. BACK: Nontender without deformity or crepitance. No flank tenderness. Objective Data Intake/Output Intake/Output: Intake & Output 12/11/20 12/12/20 12/13/20 12/14/20 22:59 22:59 23:59 23:59 Intake Total Output Total Balance Meds/Results Radiology Results: ITS Impressions Head CT 12/08/20 11:41 IMPRESSION: 1. No acute intracranial findings. Abdomen/Pelvis CT 12/08/20 11:50 IMPRESSION: 1. New lobular right middle lobe nodule most consistent with prima
[2020-12-11] MEDS: ENOXAPARIN 30 MG/0.3 ML SYRINGE SUB-Q (12:23)
[2020-12-11 15:46] VITALS: BP 159/67; PULSE 57; RESP 18; TEMP 36.3; O2SAT 100
[2020-12-11] MEDS: DONEPEZIL HCL 5 MG TABLET 10 MG PO (20:28)
[2020-12-11 22:27] LABS: Vancomycin Trough 15.9 ug/mL (10.0-15.0)
[2020-12-12] VITALS: BP 174/80; PULSE 69; RESP 18; TEMP 35.8; O2SAT 97
[2020-12-12 07:35] VITALS: BP 157/87; PULSE 72; RESP 18; TEMP 37; O2SAT 99
--- NOTE | 2020-12-12 08:09 | PM.DS ---
DS: Admitting Diagnosis Admitting Diagnosis Admitting Diagnosis: Urinary tract infection altered mental status DS: Discharge Diagnosis Discharge Diagnosis (1) Acute UTI: Code(s): N39.0 - Urinary tract infection, site not specified Status: Acute Assessment and Plan: Cipro completed 5 days of vancomycin also completed Urine Cx with the growth of Enterococcus faecalis and faecium. Culture from outside hospital with the growth Klebsiella, enterococcus faecalis Urostomy in place UA positive for blood leukocyte Estrace, RBCs WBCs (2) Acute on chronic kidney failure: Qualifiers: Acute renal failure type: unspecified Chronic kidney disease stage: unspecified stage Qualified Code(s): N17.9 - Acute kidney failure, unspecified; N18.9 - Chronic kidney disease, unspecified Code(s): N17.9 - Acute kidney failure, unspecified; N18.9 - Chronic kidney disease, unspecified Status: Acute Assessment and Plan: Improving on admission pt received 1 L NS bolus Continue IV hydration BUN 23--> -->19-->14, Cr 2.52-->2.02-->1.53-->1.51, eCrCl 26-->33-->43-->44, eGFR 25-->33-->45-->46, creatinine baseline appears to be 1.50 (3) Delirium due to general medical condition: Code(s): F05 - Delirium due to known physiological condition Status: Acute Assessment and Plan: Resolved Possibly secondary to urinary tract infection versus noncompliant with medication versus acute kidney injury CT of head on 12/07/2020-unremarkable, repeat pending CT of the abdomen and pelvis -no acute findings Ammonia and electrolytes within normal limits Continue neurochecks (4) Parkinsons disease: Code(s): G20 - Parkinson's disease Status: Acute Assessment and Plan: 12/07/2020 Continue Amentadine, and Sinamet increased to home dosage (5) Discoloration of skin of finger: Code(s): L81.9 - Disorder of pigmentation, unspecified Status: Acute Assessment and Plan: Resolved Possibly secondary to RA versus hypothyroidism versus vascular disease TSH slightly decreased not significantly, CRP on admission elevated Lactic acid within normal limits Patient does not appear to have any limitation with movement in his fingers DS: Summary Hospital Course Hospital Course: Viktor Burk is a 70 year old male who presented to our ED with hallucinations . Patient was a poor historian on admission all information obtained from medical records. Before admission patient was treated by his primary care physician with Cipro for urinary tract infection. he did complete his treatment with Cipro this hospital stay .patient is urine culture with the growth of Enterococcus faecalis and faecium. Bacteria was sensitive to vancomycin patient remained at our facility for 5 days of IV vancomycin treatment. Today patient is medically stable he is alert and orientated x4 and back at baseline. Patient caregiver concerned about patient's frequent urinary tract infections, patient will be placed on long-term prophylactic treatment with Bactrim 0.5 milligrams daily. She will follow up with the primary care physician for further treatment. Patient does have a urostomy, colostomy bag in place. Patient agrees that he is ready for discharge. The patient denies SOB, CP, palpitation, extremity numbness, lightheadedness, dizziness, constipation, diarrhea, chills, or fever. Time Spent with Patient Time attestation: Total time spent providing and/or coordinating discharge services: Exam Narrative: Exam Narrative: GENERAL: This is a well-nourished, well-developed patient, in no apparent distress. HEAD: normocephalic, atraumatic. EYES: PERRL. Sclera clear/white. Vision is grossly intact. EARS: External ears normal, auditory canals clear and without drainage, TMs normal without perforation. Hearing grossly intact. NOSE: External nose normal with no obvious nasal discharge, nares without redne
[2020-12-12] MEDS: amantadine HCL 100 MG CAPSULE PO (09:15)
[2020-12-12] MEDS: POTASSIUM CHLORIDE 20 MEQ TABLET 40 MEQ PO (09:15)
[2020-12-12] MEDS: MIDODRINE HCL 2.5 MG TABLET 5 MG PO (09:15)
[2020-12-12] MEDS: CARBIDOPA/LEVODOPA 25/100 MG CR TABLET 2 TABLET PO (09:15)
--- NOTE | 2020-12-12 10:30 | PC.NURSE ---
Patients sister here to transport patient home. IV site removed, tip intact, dressing applied. Nurse assisted patient to dress in clothing from home. All belongings gathered together and sent home with patient. All discharge instructions and education reviewed with patient, patient states understanding. Patient transferred from bed to wheelchair with 1 assist, gait belt and walker. Transferred well. Accompanied to front door via wheelchair by this nurse, patient left via private vehicle with sister. Denies any questions at discharge.
--- NOTE | 2020-12-15 12:51 | PCDIET ---
Pt states he received and understood his discharge instructions. Pt states there are nice people there .
== END 2020-12-12 10:30 | disposition home or self-care (01) | DRG 690 ==
LOC: CHSED 09:26 → CHS2ND 12:03
PROVIDERS: Nurse Practitioner; Admitting Provider Emergency Medicine; Emergency Provider Emergency Medicine; Visit Provider Emergency Medicine
DX: N39.0 Urinary tract infection, site not specified (principal); N17.9 Acute kidney failure, unspecified; F05 Delirium due to known physiological condition; N18.9 Chronic kidney disease, unspecified; G20 Parkinson's disease; N13.30 Unspecified hydronephrosis; L81.9 Disorder of pigmentation, unspecified; R91.1 Solitary pulmonary nodule; B95.2 Enterococcus as the cause of diseases classified elsewhere; Z85.038 Personal history of other malignant neoplasm of large intestine; Z93.3 Colostomy status; Z93.6 Other artificial openings of urinary tract status
CPT/HCPCS: 36415; 70450; 74176; 80053; 80202; 81001; 82140; 83605; 83690; 83735; 84439; 84443; 84484; 85025; 85027; 85055; 85610; 85652; 85730; 86140; 87040; 87086; 87088; 87147; 87186; 93005; 96361; 96374; 97110; 97161; 97165; 97530; 97535; 99285; A9270; J1650; J3370; J7030

== ENCOUNTER 2020-12-16 19:50 | Inpatient (IN) | payer MEDICARE, OTHER, SELFPAY ==
--- NOTE | ~2020-12-16 | CT_ITS ---
EXAMINATION: CT chest high resolution wo co DATE: 12/17/2020 15:55 INDICATION: Right upper lob 2.5 cm Cavitary lesion. Hx Lung CA R/O mets, upper lobe cavitary lesion, SOB TECHNIQUE: Computed tomography (CT) of the chest was performed without intravenous contrast. Addition al 3D reconstructions utilizing coronal maximum intensity projection (MIP) were performed. Automated exposure control and iterative reconstruction technique were employed. The dose-length product was 24 5.50 mGy-cm. COMPARISON: CT abdomen dated 12/08/2020 and 10/28/2019 FINDINGS: There are air bronchograms extending through an approximately 3 x 2.5 x 1.2 cm nodule at the right ap ex with poorly defined spiculated and groundglass margins. Bandlike opacity consistent with discoid a telectasis at the lingula and more subtle thin linear discoid atelectasis in the right middle lobe. N o recent interval change in a 1.7 x 1.4 cm right middle lobe nodule fluid or less than fluid attenuat ion on both the current and most recent study which would be consistent with either a hamartoma or li poid pneumonia, the latter favored given that it is it is new since 10/28/2019. Calcified left lower l obe nodule consistent with old granulomatous disease. No pleural effusion. Heart size is normal. Decr eased attenuation of the blood pool relative to myocardium consistent with anemia. Aortic valve calci fication. No pericardial effusion. Ectatic ascending thoracic aorta measuring up to 4.1 cm maximal di ameter. Left subclavian central venous port catheter with distal tip in the caudal superior vena cava . No pathologically enlarged thoracic lymphadenopathy. Persistent mild hydronephrosis in the visualiz ed upper pole of the right kidney. Moderate thoracic spondylosis with bridging osteophytes at multipl e levels consistent with diffuse idiopathic skeletal hyperostosis (DISH). IMPRESSION: 1. 3 x 2.5 x 1.2 cm mixed solid/subselected nodule with spiculated margins and with air bronchograms at the apical segment of the right upper lobe which could be infectious/inflammatory or malignant in etiology. Consider scheduling CT-guided percutaneous biopsy in 2-4 weeks with potential for canceling the biopsy should improvement be identified on card grinder CT imaging at that time. 2. Unchanged 1.7 cm fluid or less than fluid attenuation nodule in the right middle lobe which would favor either lipoid pneumonia or hamartoma over malignancy. This could be reassessed at the same time as the right apical nodule. 3. Chronic mild right hydronephrosis likely related to prior cystectomy with drainage to an ileal con duit. Reviewed, dictated and finalized at location A. IMPRESSION: 1. 3 x 2.5 x 1.2 cm mixed solid/subselected nodule with spiculated margins and with air bronchograms at the apical segment of the right upper lobe which could be infectious/inflammatory or malignant in etiology. Consider scheduling CT-gu ided percutaneous biopsy in 2-4 weeks with potential for canceling the biopsy s hould improvement be identified on card grinder CT imaging at that time. 2. Unchanged 1.7 cm fluid or less than fluid attenuation nodule in the right mi ddle lobe which would favor either lipoid pneumonia or hamartoma over malignanc y. This could be reassessed at the same time as the right apical nodule. 3. Chronic mild right hydronephrosis likely related to prior cystectomy with dr driver to an ileal conduit.
--- NOTE | ~2020-12-16 | XR_ITS ---
XR chest 1V portable DATE: 12/16/2020 20:21 INDICATION: Generalized weakness. Parkinson's. Colorectal carcinoma. TECHNIQUE: Portable AP chest on 12/16/2020 at 2015 hours COMPARISON: None FINDINGS: Left-sided Port-A-Cath catheter tip overlying superior vena cava. Normal heart size. Aortic calcification and mild tortuosity. There is discoid atelectasis or scarring in the left midlung. Possible 2.5 cm cavitary lesion overlying the right upper lung. The lungs otherwise appear clear of i nfiltrate or consolidation. Degenerative spurring of the thoracic spine. IMPRESSION: Left Port-A-Cath catheter in superior vena cava Probable cavitary lesion, right upper lobe Discoid atelectasis or scarring, left midlung Reviewed, dictated and finalized at location A.
--- NOTE | ~2020-12-16 | CT_ITS ---
EXAMINATION: CT brain wo con EXAM DATE: 12/17/2020 15:57 INDICATION: AMS Hx CA r/o Mets. Transient altered awareness, confusion, A Ox0. TECHNIQUE: Spiral CT of the head was performed without contrast. Axial, coronal and sagittal images were reviewed. The dose-length product (DLP) for this examination was 1362.00 mGy-cm. The exposure was tailored according to patient size, and iterative reconstruction (ASIR) was used as additional do se reduction technique. Comparison is made to prior examination from 12/09/2019. FINDINGS: Study is limited due to patient motion. There is moderate atrophy and mild microangiopathy. No intraparenchymal brain mass identified on this noncontrast study. No acute intracranial hemorrhag e, extra-axial collections or obstructive hydrocephalus. The posterior fossa is unremarkable. There i s no significant interval change. IMPRESSION: No acute findings or significant interval change. Reviewed, dictated and finalized at location A.
--- NOTE | 2020-12-16 20:02 | ECG_ITS ---
Measurements Intervals [place] Rate: 75 P: 5 IA: 124 QRS: 11 QRSD: 103 T: 73 QT: 430 QTc: 482 Interpretive Statements SINUS RHYTHM BORDERLINE ST-T WAVE ABNORMALITY- ANT/INF LEADS BASELINE ARTIFACT- I, II, III, AVR, AVL, AVF, V1-V6 BORDERLINE ECG Electronically Signed On 12-16-2020 20:20:54 CDT by Anthony Quijano D.O.
[2020-12-16 20:05] VITALS: BP 166/80; PULSE 80; RESP 20; TEMP 36.8; O2SAT 100
--- NOTE | 2020-12-16 20:08 | ED.URI ---
HPI - URI/Sore Throat General Chief Complaint: Weakness Stated Complaint: AMB Time Seen by Provider: 12/16/20 20:08 Source: patient, family and EMS Mode of arrival: ambulatory Limitations: no limitations History of Present Illness HPI Narrative: Sister tells us he has had altered mental status for two days the sister, who lives with him, states. Today he has not eaten or drank anything according to the her. She called 911 because he did not seem to be quite right to her. She also says he has taken a soda away from her, and has been in appropriate with her today, which is news Severity: moderate Description of mucous: watery Exacerbating factors: nothing Relieving factors: nothing Associated symptoms: denies other symptoms Related Data Home Medications Medication Instructions Recorded Confirmed amantadine HCl 100 mg PO TID 12/07/20 12/16/20 carbidopa-levodopa 2 tablet PO TID 12/07/20 12/16/20 donepezil 20 mg PO HS 12/07/20 12/16/20 midodrine 5 mg PO BID 12/07/20 12/16/20 sulfamethoxazole-trimethoprim 0.5 tablet PO HS 12/16/20 12/16/20 [Bactrim] Allergies Allergy/AdvReac Type Severity Reaction Status Date / Time No Known Allergies Allergy Verified 12/07/20 09:12 Review of Systems Constitutional: Constitutional: Reports weakness Eyes: Eyes: Reports no additional eye complaints ENT: Reports system reviewed and no additional complaints, except as documented Cardiovascular: Cardiovascular: Reports no additional cardiovascular complaints Respiratory: Respiratory: Reports no additional respiratory complaints Gastrointestinal: Gastrointestinal: Reports no additional gastrointestinal complaints Genitourinary: Genitourinary: Reports no additional male genitourinary complaints Musculoskeletal: Musculoskeletal: Reports no additional musculoskeletal complaints Integumentary/Breasts: Skin/Breast: Reports system reviewed and no additional complaints, except as docu Neurologic: Reports system reviewed and no additional complaints, except as documented Psychiatric: Psychiatric: Reports no additional psychiatric complaints Endocrine: Endocrine: Reports no additional endocrine complaints Hematologic/Lymphatic: Hematologic/Lymphatic: Reports no additional hematologic/lymphatic complaints Allergic/Immunologic: Allergic/Immunologic: Reports no additional allergic/immunologic complaints PMFSH Past Medical History Medical History Colorectal cancer Parkinsons disease Urinary tract infection Surgical History Surgical History History of urostomy Ileostomy in place Family History Family History Mother Family history non-contributory Social History Social History Smoking status: Unknown if ever smoked Alcohol intake: never Substance use: never Additional living arrangements comments: Lives with his sister who provides care for him. He is not ambulatory. Gender identity (if verbalized by the patient): Male Spiritual care concerns: No Exam Const: General: no acute distress, alert and confusion Limitations: altered mental status HENMT: Head: normal to inspection Ears: external ears normal and TM's normal bilaterally Mouth: Yes Normal oral and palatal mucosa present Throat: posterior oropharynx normal Eyes: Conjunctivae: conjunctivae normal Neck: Neck: normal visual inspection Chest: Chest palpation & inspection: normal inspection of the chest Resp: Effort & Inspection: normal respiratory effort Auscultation: clear to auscultation bilaterally Cardio: Rate: regular rate Rhythm: regular rhythm GI: GI Palp: Yes Soft to palpation : Testes: Testes normal Other: He appears to be in the process of developing a decubitus ulcer Skin: General skin exam: normal color Neuro: General
[2020-12-16 20:19] LABS: Basophils Absolute Auto 0.03 K/mm3 (0.00-0.10); Basophils Percent Auto 0.5 % (0.0-1.0); Eosinophils Absolute Auto 0.11 K/mm3 (0.02-0.50); Eosinophils Percent Auto 1.8 % (1.0-6.0); Hematocrit 35.8 % (37.0-46.0); Hemoglobin 11.5 g/dL (12.4-15.3); Immature Granulocyte Absolute 0.02 K/mm3 (0.00-0.00); Immature Granulocyte Percent A 0.3 % (0.0-0.0); Lymphocytes Absolute Auto 0.61 K/mm3 (1.10-4.50); Lymphocytes Percent Auto 9.9 % (18.0-42.0); Mean Corpuscular HGB Conc 32.1 g/dL (32.0-36.0); Mean Corpuscular Hemoglobin 29.8 pg (27.0-31.0); Mean Corpuscular Volume 92.7 fL (78.0-102.0); Mean Platelet Volume 9.6 fl (8.7-11.0); Monocytes Absolute Auto 0.42 K/mm3 (0.10-0.90); Monocytes Percent Auto 6.8 % (2.0-11.0); Neutrophils Percent Auto 80.7 % (50.0-70.0); Platelet Count Result 190 K/mm3 (150-420); Red Blood Count 3.86 M/mm3 (4.70-6.10); White Blood Count 6.2 K/mm3 (4.8-10.8)
[2020-12-16 20:38] LABS: Alkaline Phosphatase 153 U/L (46-116); Anion Gap 12 mmol/L (8-16); Aspartate Amino Transferase 13 U/L (15-37); Bilirubin,Total 0.5 mg/dL (0.00-1.00); Blood Urea Nitrogen 21 mg/dL (7-18); Calcium 9.4 mg/dL (8.5-10.1); Carbon Dioxide 26 mmol/L (21-32); Chloride 105 mmol/L (98-108); Estimated CRCL calculation 30 ml/min; Estimated Glomerular Filt Rate 31; Glucose 114 mg/dL (70-99); Lactic Acid Reflex 1.7 mmol/L (0.4-2.0); Osmolality Calculated 300 mOsm/kg (285-295); Sodium 143 mmol/L (136-145); Total Protein 7.7 g/dL (6.4-8.2)
[2020-12-16 20:39] LABS: Appearance Urine Sl Cloudy (Clear); Bilirubin Urine Negative (Negative); Color Urine Yellow (Yellow); Glucose Urine UA Negative (Negative); Ketones Urine Negative (Negative); Leukocyte Esterase Ur 1+ (Negative); Nitrate Urine Negative (Negative); Protein Urine 1+ (Negative); Specific Grav Ur >= 1.030 (1.010-1.020); Urobilinogen Urine 0.2 mg/dL (0.2-1.0)
[2020-12-16 20:47] LABS: Alanine Aminotransferase 10 U/L (16-63)
[2020-12-16 20:48] LABS: Add Urine Microscopic? YES; Bacteria Urine 1+ /hpf; Blood Urine Trace (Negative); Budding Yeast Urine Present /hpf; Squamous Epithelial Cell Urine Rare /hpf (Few); WBC Urine 16-20 /hpf (0-3)
[2020-12-16 20:49] LABS: BNP 45.5 pg/mL (0-100); Troponin I 10.3 ng/L (0.00-60.4)
[2020-12-16 21:22] VITALS: BP 132/59; PULSE 85; RESP 20; O2SAT 97
[2020-12-16 22:00] VITALS: BMI 22.9
[2020-12-16] MEDS: SODIUM CHLORIDE 0.9% IV 1,000 ML 250 ML IV CONT (22:10)
[2020-12-16] MEDS: DONEPEZIL HCL 5 MG TABLET 20 MG PO (22:11)
--- NOTE | 2020-12-16 22:38 | ADMGEN ---
This patient, Viktor Burk, was admitted to 2nd Floor Room 209-1. Patient oriented to general routines including ID bracelet, bed and alarms, visiting hours, pain management, procedures, bathroom and other care routines, personal items, smoking policy, room service/diet, and visiting hours. Patient encouraged to report perceived risks to care and to ask questions if they do not understand what they are told or what they should do.
--- NOTE | 2020-12-16 22:40 | PC.NURSE ---
IV fluids infusing per order, alarms on
[2020-12-16 22:43] VITALS: BP 168/86; PULSE 72; RESP 20; TEMP 37.2; O2SAT 100
--- NOTE | 2020-12-17 01:33 | PC.NURSE ---
pt's urostomy bag was secured with medipore tape because it was leaking, charge account clerk notified we do not have new urostomy bags available. pt given a turkey sandwich and jonah mist, pt stated he hasn't eaten in 4 days and is really hungry.
[2020-12-17] MEDS: SODIUM CHLORIDE 0.9% IV 1,000 ML 125 ML IV CONT ×3 (02:14→21:37)
[2020-12-17 05:32] LABS: Basophils Absolute Auto 0.02 K/mm3 (0.00-0.10); Basophils Percent Auto 0.3 % (0.0-1.0); Eosinophils Absolute Auto 0.18 K/mm3 (0.02-0.50); Eosinophils Percent Auto 3.1 % (1.0-6.0); Hematocrit 32.1 % (37.0-46.0); Hemoglobin 10.1 g/dL (12.4-15.3); Immature Granulocyte Absolute 0.02 K/mm3 (0.00-0.00); Immature Granulocyte Percent A 0.3 % (0.0-0.0); Lymphocytes Absolute Auto 0.59 K/mm3 (1.10-4.50); Lymphocytes Percent Auto 10.3 % (18.0-42.0); Mean Corpuscular HGB Conc 31.5 g/dL (32.0-36.0); Mean Corpuscular Hemoglobin 29.2 pg (27.0-31.0); Mean Corpuscular Volume 92.8 fL (78.0-102.0); Mean Platelet Volume 9.3 fl (8.7-11.0); Monocytes Absolute Auto 0.53 K/mm3 (0.10-0.90); Monocytes Percent Auto 9.2 % (2.0-11.0); Neutrophils Absolute Auto 4.4 K/mm3 (1.7-7.2); Neutrophils Percent Auto 76.8 % (50.0-70.0); Platelet Count Result 156 K/mm3 (150-420); Red Blood Count 3.46 M/mm3 (4.70-6.10); Red Cell Distribution Width 14.2 % (11.6-14.4); White Blood Count 5.7 K/mm3 (4.8-10.8)
[2020-12-17 05:43] LABS: Anion Gap 12 mmol/L (8-16); Blood Urea Nitrogen 20 mg/dL (7-18); Calcium 8.7 mg/dL (8.5-10.1); Carbon Dioxide 25 mmol/L (21-32); Chloride 109 mmol/L (98-108); Estimated CRCL calculation 35 ml/min; Estimated Glomerular Filt Rate 34; Glucose 111 mg/dL (70-99); Osmolality Calculated 305 mOsm/kg (285-295); Potassium 4.2 mmol/L (3.5-5.1); Sodium 146 mmol/L (136-145)
--- NOTE | 2020-12-17 06:25 | PC.NURSE ---
Attempted to get pt ready to go to X-ray for a chest x-ray; Pt refused the x-ray and refused to get out of bed and said there's going to be trouble in here if you try to get me up . Dr. Landrum and x-ray notified of pt's refusal of x-ray and no new orders at this time.
[2020-12-17 07:42] VITALS: BP 168/86; PULSE 82; RESP 18; TEMP 37.1; O2SAT 97
[2020-12-17] MEDS: amantadine HCL 100 MG CAPSULE PO (09:01)
[2020-12-17] MEDS: ACETAMINOPHEN 325 MG TABLET 650 MG PO (09:02)
[2020-12-17] MEDS: CARBIDOPA/LEVODOPA 25/100 MG CR TABLET 1 TABLET PO ×2 (09:03→12:18)
[2020-12-17] MEDS: MIDODRINE HCL 2.5 MG TABLET 5 MG PO (09:03)
[2020-12-17] MEDS: ENOXAPARIN 30 MG/0.3 ML SYRINGE SUB-Q (09:03)
--- NOTE | 2020-12-17 10:50 | PC.NURSE ---
Pt status changed from Observation status to Inpatient status per DRESSER TENDER order.
--- NOTE | 2020-12-17 10:56 | PM.IMHP ---
H&P: HPI History of Present Illness Date/Time: 12/17/20 10:56 Viktor Burk is a 70 y/o male who was brought into the ER by EMS after sister called 911 because the Pt had Altered mental status. Sister is the historian and lives with the Pt. Per the sister the Pt had AMS x 2 days and has not eaten or drank the day prior to coming to the ER. She reports that Pt was being inappropriate. When the Pt was seen by the floor RNMartha, she reported the Pt stated They killed my sone and They killed my . I heard him say I see my son in the hobbs bouncing on his head prior to the above report by SEAN Thomas. Per the sister Pt has a Hx of Lung CA in the Left and Right Lung and was treated for this. Radiology report states: chest x-ray shows Probable cavitary lesion Rt upper lobe 2.5 cm. Other PMHx includes: Colorectal CA, Parkinson's, UTI, Urostomy, Ileostomy. Pt initially put in Observation from the ER likely for Neurologic checks, I put Pt in as inpatient status as he likely will be here for more than 2 days d/t AMS and needing IV Ab for his UTI. Chief Complaint: AMS Review of Systems Review of Systems: ROS unobtainable: Yes unobtainable due to mental status (Otherwise Sister is Historian) [facility] Past Medical History Medical History Colorectal cancer Parkinsons disease Urinary tract infection Surgical History Surgical History History of urostomy Ileostomy in place Family History Family History Mother Family history non-contributory Social History Social History Smoking status: Unknown if ever smoked Alcohol intake: never Substance use: never Additional living arrangements comments: Lives with his sister who provides care for him. He is not ambulatory. Gender identity (if verbalized by the patient): Male Spiritual care concerns: No Meds Home Medications and Allergies Home Medications Medication Instructions Recorded Confirmed Type amantadine HCl 100 mg PO TID 12/07/20 12/16/20 History carbidopa-levodopa 2 tablet PO TID 12/07/20 12/16/20 History donepezil 20 mg PO HS 12/07/20 12/16/20 History midodrine 5 mg PO BID 12/07/20 12/16/20 History sulfamethoxazole-trimethoprim 0.5 tablet PO HS 12/16/20 12/16/20 History [Bactrim] Allergies Allergy/AdvReac Type Severity Reaction Status Date / Time No Known Allergies Allergy Verified 12/07/20 09:12 Vital Signs Vital Signs - 24 hr 12/16/20 20:05 12/16/20 21:22 12/16/20 22:43 Temperature 98.2 F 98.9 F Pulse Rate 80 85 72 Respiratory Rate 20 20 20 Blood Pressure 166/80 H 132/59 L 168/86 H Pulse Oximetry 100 97 100 12/17/20 07:42 Temperature 98.8 F Pulse Rate 82 Respiratory Rate 18 Blood Pressure 168/86 H Pulse Oximetry 97 Exam Const: General: combative (some times, moans at times), confusion and ill appearing Nutritional Appearance: average body habitus Chest: Other: Left upper Chest Port-a-Cath Resp: Effort & Inspection: normal respiratory effort Auscultation: diminished lung sounds on the left throughout and other (clear right side) Cardio: Rate: regular rate Heart sounds: S1 normal heart sound present, S2 normal heart sound present, no click, no gallops, no murmurs and no rubs GI: Inspection: other (Ileostomy and Urostmy in place and draining with normal stoma appearance) GI Palp: Yes Soft to palpation and No Tenderness to palpation present (GI) Auscultation: normal bowel sounds Neuro: General: confusion (most of the time, now with Ativan for CT scans of brain and chest) Cognition (Neuro): abnormal cognition (hallucinations as noted in HPI) Speech: Abnormal speech present Extrem: General: no pedal edema H&P: Results Labs Labs: Short CBC 12/16/20 12/17/20 Range/Units 20:14 05:15 WBC 6.2
[2020-12-17] MEDS: LORazepam INJ (*CRX) 2 MG/ML VIAL 1 MG IV PUSH ×2 (12:18→15:06)
[2020-12-17 15:38] VITALS: BP 170/64; PULSE 71; RESP 18; TEMP 36.7; O2SAT 95
--- NOTE | 2020-12-17 15:53 | PC.NURSE ---
pt taken down to ct, now back in bed, fluids restarted, rails up, bed alarm on
--- NOTE | 2020-12-17 21:34 | PC.NURSE ---
Patient responded verbally to question. Oriented to self only. Did not open his eyes.
[2020-12-17] MEDS: LORazepam INJ (*CRX) 2 MG/ML VIAL 0.5 MG IV PUSH (22:48)
--- NOTE | 2020-12-17 22:58 | PC.NURSE ---
Patient agitated -moving around in bed,throwing legs over edge of bed and appears to be experiencing hallucinations. PRN ativan given.
[2020-12-17 23:57] VITALS: BP 183/82; PULSE 74; RESP 18; TEMP 36.6; O2SAT 97
[2020-12-18 05:25] LABS: Basophils Absolute Auto 0.04 K/mm3 (0.00-0.10); Basophils Percent Auto 0.5 % (0.0-1.0); Eosinophils Absolute Auto 0.24 K/mm3 (0.02-0.50); Eosinophils Percent Auto 3.2 % (1.0-6.0); Hematocrit 32.1 % (37.0-46.0); Hemoglobin 10.1 g/dL (12.4-15.3); Immature Granulocyte Absolute 0.02 K/mm3 (0.00-0.00); Immature Granulocyte Percent A 0.3 % (0.0-0.0); Lymphocytes Absolute Auto 0.63 K/mm3 (1.10-4.50); Lymphocytes Percent Auto 8.4 % (18.0-42.0); Mean Corpuscular HGB Conc 31.5 g/dL (32.0-36.0); Mean Corpuscular Hemoglobin 29.4 pg (27.0-31.0); Mean Corpuscular Volume 93.3 fL (78.0-102.0); Mean Platelet Volume 9.3 fl (8.7-11.0); Monocytes Absolute Auto 0.52 K/mm3 (0.10-0.90); Monocytes Percent Auto 6.9 % (2.0-11.0); Neutrophils Absolute Auto 6.1 K/mm3 (1.7-7.2); Neutrophils Percent Auto 80.7 % (50.0-70.0); Platelet Count Result 134 K/mm3 (150-420); Red Blood Count 3.44 M/mm3 (4.70-6.10); Red Cell Distribution Width 13.9 % (11.6-14.4); White Blood Count 7.5 K/mm3 (4.8-10.8)
[2020-12-18 05:56] LABS: Alanine Aminotransferase 10 U/L (16-63); Albumin Level 3.7 g/dL (3.4-5.0); Alkaline Phosphatase 131 U/L (46-116); Anion Gap 12 mmol/L (8-16); Aspartate Amino Transferase 14 U/L (15-37); Bilirubin,Total 0.6 mg/dL (0.00-1.00); Blood Urea Nitrogen 14 mg/dL (7-18); Carbon Dioxide 24 mmol/L (21-32); Chloride 107 mmol/L (98-108); Estimated CRCL calculation 39 ml/min; Estimated Glomerular Filt Rate 40; Glucose 89 mg/dL (70-99); Osmolality Calculated 295 mOsm/kg (285-295); Sodium 143 mmol/L (136-145); Total Protein 6.4 g/dL (6.4-8.2)
[2020-12-18] MEDS: SODIUM CHLORIDE 0.9% IV 1,000 ML 125 ML IV CONT (06:15)
[2020-12-18 08:00] VITALS: BP 162/83; PULSE 72; RESP 18; TEMP 36.6; O2SAT 99
[2020-12-18] MEDS: amantadine HCL 100 MG CAPSULE PO (08:04)
[2020-12-18] MEDS: MIDODRINE HCL 2.5 MG TABLET 5 MG PO (08:04)
[2020-12-18] MEDS: CARBIDOPA/LEVODOPA 25/100 MG CR TABLET 1 TABLET PO (08:04)
[2020-12-18] MEDS: ENOXAPARIN 30 MG/0.3 ML SYRINGE SUB-Q (08:05)
--- NOTE | 2020-12-18 09:20 | PM.IMPN ---
Progress Note: A&P Assessment and Plan (1) Cavitary lesion of lung: Code(s): J98.4 - Other disorders of lung <Dheeraj RosalesTal JoeLUIS FELIPE-C - Last Filed: 12/18/20 13:52> Status: Acute <Dheeraj Diaz HOME THERAPY CLINICIAN-C - Last Filed: 12/18/20 13:52> Assessment and Plan: 12/18/2020 Partial radiologist report: 3 x 2.5 x 1.2 cm mixed solid/subselected nodule with spiculated margins and with air bronchograms at the apical segment of the right upper lobe which could be infectious/inflammatory or malignant in etiology. Consider scheduling CT-guided percutaneous biopsy in 2-4 weeks with potential for canceling the biopsy should improvement be identified on [employer] CT imaging at that time. Pts Oncologist is Dr. Moreno [phone], I will contact his office as a courtesy as Pt was scheduled to have CT and PET done this coming Monday <Dheeraj RosalesTal Diaz APN-C - Last Filed: 12/18/20 13:52> (2) Acute UTI: Code(s): N39.0 - Urinary tract infection, site not specified <Dheeraj RosalesTal Mookoz HOME THERAPY CLINICIAN-C - Last Filed: 12/18/20 13:52> Status: Acute <Dheeraj RosalesTal MookLUIS FELIPE clinton-C - Last Filed: 12/18/20 13:52> Assessment and Plan: 12/17/2020 Currently on Zosyn with renal dosing, Urine and blood Cx pending, monitor VS, monitor urine output/Urostomy draining, Urostomy care 12/18/2020 Added Vancomycin, continue Zosyn with renal dosing for both, renal function is improving, blood and urine Cx still pending <Dheeraj RosalesTal Diaz HOME THERAPY CLINICIAN-C - Last Filed: 12/18/20 13:52> (3) AMS (altered mental status): Code(s): R41.82 - Altered mental status, unspecified <Dheeraj RosalesTal Diaz HOME THERAPY CLINICIAN-C - Last Filed: 12/18/20 13:52> Status: Acute <Dheeraj RosalesTal Diaz APN-C - Last Filed: 12/18/20 13:52> Assessment and Plan: 12/17/2020 Pt unable to communicate well at all, likely associated to his UTI, anticipate improvement as UTI improves, neuro checks QShift, Ativan 0.5mg for agitation, CT head to r/t Mets to brain, images complete awaiting report 12/18/2020 a little more lucid today when it is possible to wake the Pt up, at one point today he followed some commands and later in the day he did not follow commands, continue with neuro checks, continue to treat UTI with anticipation this will improve mental status <CAROLYN Thomas - Last Filed: 12/18/20 13:52> (4) Acute on chronic kidney failure: Qualifiers: Acute renal failure type: unspecified Chronic kidney disease stage: unspecified stage Qualified Code(s): N17.9 - Acute kidney failure, unspecified; N18.9 - Chronic kidney disease, unspecified <CAROLYN Thomas - Last Filed: 12/18/20 13:52> Code(s): N17.9 - Acute kidney failure, unspecified; N18.9 - Chronic kidney disease, unspecified <JEEVAN ThomasC - Last Filed: 12/18/20 13:52> Status: Acute <CAROLYN Thomas - Last Filed: 12/18/20 13:52> Assessment and Plan: 12/17/2020 IVF NS @ 125mL/h, monitor renal function, avoid nephrotoxic agents, Urine Cx Pending, monitor renal function 12/18/2020 Continue with IVFs change to D5NS as Pt is not eating. D5NS at 100 mL/h <CAROLYN Thomas - Last Filed: 12/18/20 13:52> (5) Dehydration: Code(s): E86.0 - Dehydration <CAROLYN Thomas - Last Filed: 12/18/20 13:52> Status: Acute <CAROLYN Thomas - Last Filed: 12/18/20 13:52> Assessment and Plan: 12/17/2020 IVF NS @ 125mL/h, not taking PO fluids at this time d/t AMS and Ativan given for CT of head and chest for AMS and cavitation lesion right upper lung and r/o mets to brain 12/18/2020 IVF changed as noted above, Pt not taking PO fluids nor eating at this time <CAROLYN Thomas - Last Filed: 12/18/20 13:52> (6) Parkinsons disease: Code(s): G20 - Parkinson's disease <CAROLYN Thomas - Last Filed: 12/18/20 13:52> Status: Acute <CAROLYN Thomas - Last Filed: 12/18/20 13:52> Assessment and P
[2020-12-18 12:17] VITALS: PULSE 72
[2020-12-18] MEDS: DEXTROSE 5%/0.9% SOD CHL 1,000 ML 100 ML IV CONT (14:09)
[2020-12-18 15:42] VITALS: BP 172/74; PULSE 63; RESP 16; TEMP 36.4; O2SAT 99
--- NOTE | 2020-12-18 15:43 | PC.NURSE ---
Makes sound only when called & touched.
[2020-12-19] VITALS: BP 172/80; PULSE 78; RESP 18; TEMP 36.3; O2SAT 93
[2020-12-19] MEDS: DEXTROSE 5%/0.9% SOD CHL 1,000 ML 100 ML IV CONT ×3 (00:05→23:43)
[2020-12-19 05:41] LABS: Hematocrit 31.2 % (37.0-46.0); Hemoglobin 9.8 g/dL (12.4-15.3); Mean Corpuscular HGB Conc 31.4 g/dL (32.0-36.0); Mean Corpuscular Hemoglobin 29.3 pg (27.0-31.0); Mean Corpuscular Volume 93.4 fL (78.0-102.0); Mean Platelet Volume 9.4 fl (8.7-11.0); Platelet Count Result 135 K/mm3 (150-420); Red Blood Count 3.34 M/mm3 (4.70-6.10); Red Cell Distribution Width 13.8 % (11.6-14.4); White Blood Count 4.9 K/mm3 (4.8-10.8)
[2020-12-19 05:53] LABS: Anion Gap 7 mmol/L (8-16); Blood Urea Nitrogen 9 mg/dL (7-18); Calcium 8.4 mg/dL (8.5-10.1); Carbon Dioxide 28 mmol/L (21-32); Chloride 107 mmol/L (98-108); Estimated CRCL calculation 41 ml/min; Estimated Glomerular Filt Rate 42; Glucose 106 mg/dL (70-99); Osmolality Calculated 292 mOsm/kg (285-295); Potassium 3.6 mmol/L (3.5-5.1); Sodium 142 mmol/L (136-145)
[2020-12-19 08:00] VITALS: BP 134/63; PULSE 60; RESP 18; TEMP 37.2; O2SAT 98
--- NOTE | 2020-12-19 08:37 | PC.NURSE ---
Patient sleeping. Slight response to shaking. Patient not taking medications or eating since . Turn and repositioned
[2020-12-19] MEDS: ENOXAPARIN 30 MG/0.3 ML SYRINGE SUB-Q (08:49)
--- NOTE | 2020-12-19 10:49 | PM.IMPN ---
Progress Note: A&P Assessment and Plan (1) Parkinsons disease: Code(s): G20 - Parkinson's disease Status: Acute Assessment and Plan: Will restart patient Po medication when he is able to take oral medication . (2) Urinary tract infection: Code(s): N39.0 - Urinary tract infection, site not specified Status: Acute Assessment and Plan: IV antibiotics will continue Antifungal added (3) Acute on chronic kidney failure: Qualifiers: Acute renal failure type: unspecified Chronic kidney disease stage: unspecified stage Qualified Code(s): N17.9 - Acute kidney failure, unspecified; N18.9 - Chronic kidney disease, unspecified Code(s): N17.9 - Acute kidney failure, unspecified; N18.9 - Chronic kidney disease, unspecified Status: Acute Assessment and Plan: IVF's to continue patient currently is at baseline Cr level (4) AMS (altered mental status): Code(s): R41.82 - Altered mental status, unspecified Status: Acute Assessment and Plan: Remain lethargic and unable to awaken at this time. We will continue to monitor labs and treat underlying infection . (5) Candidiasis, unspecified: Code(s): B37.9 - Candidiasis, unspecified Status: Acute Assessment and Plan: Start IV Fluconazole today IV antibiotics Subjective Date/time seen: 12/19/20 10:49 Patient remains in the bed and lethargic. He is not talking although when I attempted to look into his eye he was squeezing his eye closed and would not allow me to open his eyelids. Will continue to monitor patient reviewed CT scan and x rays nothing new on head CT. Will monitor to see if new medication assist with patient being less lethargic . Patient is moving himself around in the bed. No signs or symptoms of pain and or discomfort no nausea and or vomiting and patient remains afebrile. Review of Systems Review of Systems: All systems reviewed & are unremarkable except as noted in HPI and below Exam Const: General: comfortable Eyes: Other: unable to access patient will not open his eyes Resp: Auscultation: clear to auscultation bilaterally Cardio: Rate: regular rate Rhythm: regular rhythm GI: GI Palp: Yes Soft to palpation Auscultation: normal bowel sounds Other: colostomy bag is on left side of abdomen which is round and sound Hyperactive bowel sounds Urinary Catheter: Urinary Catheter: patent and draining and urine clear Back/Spine/Pelvis: Back: no CVA tenderness Skin: General skin exam: normal color Neuro: Cognition (Neuro): abnormal cognition Other: lethargic and not talking at this time Extrem: Other: trace edema on bilateral legs Psych: Other: non responsive at this time Objective Data Vital Signs Vital Signs: Vital Signs - 24 hr 12/18/20 12:17 12/18/20 15:42 12/19/20 00:00 Temperature 97.6 F 97.4 F L Pulse Rate 72 63 78 Respiratory Rate 16 18 Blood Pressure 172/74 H 172/80 H Pulse Oximetry 99 93 12/19/20 08:00 Temperature 99.0 F Pulse Rate 60 Respiratory Rate 18 Blood Pressure 134/63 Pulse Oximetry 98 Intake/Output Intake/Output: Intake & Output 12/16/20 12/17/20 12/18/20 12/19/20 23:59 23:59 23:59 23:59 Intake Total 50 4245 2510 1293.333 Output Total 850 2250 1400 Balance 50 3395 260 -106.667 Meds/Results Medications: Active Medications Generic Name Dose Route Start Last Admin Trade Name Freq PRN Reason Stop Dose Admin Acetaminophen 650 mg 12/16/20 21:20 12/17/20 09:02 Acetaminophen 325 Mg Tablet PO 650 mg Q4H PRN Administration Mild Pain (1-3) or Fever Amantadine HCl 100 mg 12/17/20 09:00 12/19/20 08:36 Amantadine Hcl 100 Mg Capsule PO Not Given TID MOISÉS Carbidopa/Levodopa 1 tablet 12/17/20 08:00 12/19/20 09:47 Carbidopa/Levodopa 25/100 Mg Cr Tablet PO Not Given TIDWM MOISÉS Donepezil HCl 20 mg 12/16/20 22:05 12/18/20 21:44 Donepezil Hcl 5 Mg Tablet PO 01/16/21
--- NOTE | 2020-12-19 15:42 | PC.NURSE ---
Patient has only responded by opening eyes briefly with shaking. Patient's came to visit. Patient is speaking with , witnessed by dietary and nurse. is feeding patient at this time. Patient does not want nursing to know. Patient believes someone named Arabella is watching him.
[2020-12-19 16:00] VITALS: BP 122/59; PULSE 84; RESP 18; TEMP 36.9; O2SAT 100
[2020-12-19] MEDS: amantadine HCL 100 MG CAPSULE PO (16:13)
[2020-12-19] MEDS: CARBIDOPA/LEVODOPA 25/100 MG CR TABLET 1 TABLET PO (16:13)
[2020-12-19] MEDS: MIDODRINE HCL 2.5 MG TABLET 5 MG PO (16:13)
--- NOTE | 2020-12-19 16:20 | PC.NURSE ---
giving patient 1700 medications. Patient acts non responsive when staff in room
[2020-12-19] MEDS: DONEPEZIL HCL 5 MG TABLET 20 MG PO (20:36)
[2020-12-19 23:46] VITALS: BP 149/71; PULSE 76; RESP 20; TEMP 36.6; O2SAT 98
[2020-12-20 05:51] LABS: Hematocrit 31.2 % (37.0-46.0); Hemoglobin 9.6 g/dL (12.4-15.3); Mean Corpuscular HGB Conc 30.8 g/dL (32.0-36.0); Mean Corpuscular Hemoglobin 28.7 pg (27.0-31.0); Mean Corpuscular Volume 93.4 fL (78.0-102.0); Mean Platelet Volume 9.2 fl (8.7-11.0); Platelet Count Result 127 K/mm3 (150-420); Red Blood Count 3.34 M/mm3 (4.70-6.10); Red Cell Distribution Width 13.9 % (11.6-14.4); White Blood Count 4.1 K/mm3 (4.8-10.8)
[2020-12-20 06:07] LABS: Alanine Aminotransferase 13 U/L (16-63); Alkaline Phosphatase 118 U/L (46-116); Anion Gap 10 mmol/L (8-16); Aspartate Amino Transferase 11 U/L (15-37); Bilirubin,Total 0.4 mg/dL (0.00-1.00); Blood Urea Nitrogen 7 mg/dL (7-18); Calcium 8.6 mg/dL (8.5-10.1); Carbon Dioxide 27 mmol/L (21-32); Chloride 108 mmol/L (98-108); Estimated CRCL calculation 42 ml/min; Estimated Glomerular Filt Rate 43; Glucose 104 mg/dL (70-99); Osmolality Calculated 298 mOsm/kg (285-295); Potassium 3.5 mmol/L (3.5-5.1); Sodium 145 mmol/L (136-145)
[2020-12-20 07:46] VITALS: BP 165/80; PULSE 65; RESP 18; TEMP 37; O2SAT 98
[2020-12-20] MEDS: ENOXAPARIN 30 MG/0.3 ML SYRINGE SUB-Q (09:43)
[2020-12-20] MEDS: MIDODRINE HCL 2.5 MG TABLET 5 MG PO ×2 (09:43→16:10)
[2020-12-20 09:44] VITALS: PULSE 65
[2020-12-20] MEDS: amantadine HCL 100 MG CAPSULE PO ×3 (09:44→16:10)
[2020-12-20] MEDS: METOPROLOL SUCCINATE EXT REL 25 MG TABCR PO (09:44)
[2020-12-20] MEDS: CARBIDOPA/LEVODOPA 25/100 MG CR TABLET 1 TABLET PO ×3 (09:44→16:10)
[2020-12-20 11:26] LABS: Vancomycin Trough 11.2 ug/mL (10.0-15.0)
--- NOTE | 2020-12-20 13:46 | P.PN_ITS ---
Progress Note: A&P Assessment and Plan (1) Parkinsons disease: Code(s): G20 - Parkinson's disease <Francis StantonGLENNY-C - Last Filed: 12/20/20 13:57> Status: Acute <Francis StantonGLENNY-C - Last Filed: 12/20/20 13:57> Assessment and Plan: * Continue home medication * Follow-up with neurologist on discharge <Francis TorreTal MaximinoLEOC - Last Filed: 12/20/20 13:57> (2) Urinary tract infection: Code(s): N39.0 - Urinary tract infection, site not specified <Francis StantonGLENNY-C - Last Filed: 12/20/20 13:57> Status: Acute <Francis StantonGLENNY-C - Last Filed: 12/20/20 13:57> Assessment and Plan: * Patient UA culture negative for any growth of bacteria did grow Karma's * Continue antifungal * IV antibiotics discontinued <Francis TorreTal MaximinoGLENNY-C - Last Filed: 12/20/20 13:57> (3) Acute on chronic kidney failure: Qualifiers: Acute renal failure type: unspecified Chronic kidney disease stage: unspecified stage Qualified Code(s): N17.9 - Acute kidney failure, unspecified; N18.9 - Chronic kidney disease, unspecified <Francis StantonGLENNY-C - Last Filed: 12/20/20 13:57> Code(s): N17.9 - Acute kidney failure, unspecified; N18.9 - Chronic kidney disease, unspecified <Francis TorreaTl MaximinoGLENNY-C - Last Filed: 12/20/20 13:57> Status: Acute <Francis StantonGLENNY-C - Last Filed: 12/20/20 13:57> Assessment and Plan: * Stable patient * creatinine 1.59 at baseline * Renal dose all medication * Avoid nephrotoxic agent * CMP in a.m. * <Lucianoabbie YelitzaGLENNY Ayala-C - Last Filed: 12/20/20 13:57> (4) AMS (altered mental status): Code(s): R41.82 - Altered mental status, unspecified <Francis YelitzaGLENNY Ayala-C - Last Filed: 12/20/20 13:57> Status: Acute <Francis Stanton MANAGER PROJECTSujataPietro - Last Filed: 12/20/20 13:57> Assessment and Plan: * Resolved * Possibly secondary to metastatic disease versus worsening Parkinson's * Patient will follow up with his customer operations specialist oncologist for a PET scan he will also follow-up with his neurologist for reevaluation of his Parkinson disease * Head CT unremarkable. <Francis StantonGLENNYSujataPietro - Last Filed: 12/20/20 13:57> (5) Candidiasis, unspecified: Code(s): B37.9 - Candidiasis, unspecified <Francis StantonGLENNYSujataPietro - Last Filed: 12/20/20 13:57> Status: Acute <Francis Stanton MANAGER PROJECTKemi - Last Filed: 12/20/20 13:57> Assessment and Plan: * Continue fluconazole <Francis StantonGLENNYKemi - Last Filed: 12/20/20 13:57> (6) Cavitary lesion of lung: Code(s): J98.4 - Other disorders of lung <Francis Stanton LEOPietro - Last Filed: 12/20/20 13:57> Status: Acute <Francis Stanton ROYA - Last Filed: 12/20/20 13:57> Assessment and Plan: * Patient will need to follow-up with his oncologist customer operations specialist * Plan for radiation in future * Imaging indicates 2.5 cm lesion over the right upper lung <Francis StantonGLENNYSujataPietro - Last Filed: 12/20/20 13:57> Review of Systems Review of Systems: All systems reviewed & are unremarkable except as noted in HPI and below (No abnormalities other than what was mentioned in the H&P) <Francis StantonGLENNYSujataPietro - Last Filed: 12/20/20 13:57> Exam Narrative: Exam Narrative: Exam Narrative: GENERAL: This is a well-nourished, well-developed patient, in no apparent distress. HEAD: normocephalic, atraumatic. EYES: PERRL. Sclera clear/white. Vision is grossly intact. EARS: External ears normal, auditory canals clear and witho
--- NOTE | 2020-12-20 13:46 | WPDPN ---
Progress Note: A&P Assessment and Plan (1) Parkinsons disease: Code(s): G20 - Parkinson's disease <Francis Stanton WEED CONTROLLER-C - Last Filed: 12/20/20 13:57> Status: Acute <Francis Statnon WEED CONTROLLER-C - Last Filed: 12/20/20 13:57> Assessment and Plan: Continue home medication Follow-up with neurologist on discharge <Francis TorreTal MaximinoROYA - Last Filed: 12/20/20 13:57> (2) Urinary tract infection: Code(s): N39.0 - Urinary tract infection, site not specified <Francis Stanton WEED CONTROLLER-C - Last Filed: 12/20/20 13:57> Status: Acute <Francis Stanton WEED CONTROLLER-C - Last Filed: 12/20/20 13:57> Assessment and Plan: Patient UA culture negative for any growth of bacteria did grow Karma's Continue antifungal IV antibiotics discontinued <Francis TorreROYA Ayala - Last Filed: 12/20/20 13:57> (3) Acute on chronic kidney failure: Qualifiers: Acute renal failure type: unspecified Chronic kidney disease stage: unspecified stage Qualified Code(s): N17.9 - Acute kidney failure, unspecified; N18.9 - Chronic kidney disease, unspecified <Francis Stanton WEED CONTROLLER-C - Last Filed: 12/20/20 13:57> Code(s): N17.9 - Acute kidney failure, unspecified; N18.9 - Chronic kidney disease, unspecified <Francis TorreLEO AyalaC - Last Filed: 12/20/20 13:57> Status: Acute <Francis Stanton WEED CONTROLLER-C - Last Filed: 12/20/20 13:57> Assessment and Plan: Stable patient creatinine 1.59 at baseline Renal dose all medication Avoid nephrotoxic agent CMP in a.m. <Lucianoabbie YelitzaLEO AyalaC - Last Filed: 12/20/20 13:57> (4) AMS (altered mental status): Code(s): R41.82 - Altered mental status, unspecified <Lucianoabbie YelitzaLEO AyalaC - Last Filed: 12/20/20 13:57> Status: Acute <GLENNY Mckinley-C - Last Filed: 12/20/20 13:57> Assessment and Plan: Resolved Possibly secondary to metastatic disease versus worsening Parkinson's Patient will follow up with his director digital marketing oncologist for a PET scan he will also follow-up with his neurologist for reevaluation of his Parkinson disease Head CT unremarkable. <LEO MckinleyC - Last Filed: 12/20/20 13:57> (5) Candidiasis, unspecified: Code(s): B37.9 - Candidiasis, unspecified <GLENNY Mckinley-C - Last Filed: 12/20/20 13:57> Status: Acute <LEO MckinleyC - Last Filed: 12/20/20 13:57> Assessment and Plan: Continue fluconazole <GLENNY Mckinley-C - Last Filed: 12/20/20 13:57> (6) Cavitary lesion of lung: Code(s): J98.4 - Other disorders of lung <Francis Stanton LEOC - Last Filed: 12/20/20 13:57> Status: Acute <GLENNY Mckinley-C - Last Filed: 12/20/20 13:57> Assessment and Plan: Patient will need to follow-up with his oncologist director digital marketing Plan for radiation in future Imaging indicates 2.5 cm lesion over the right upper lung <Francis Stanton LEOC - Last Filed: 12/20/20 13:57> Review of Systems Review of Systems: All systems reviewed & are unremarkable except as noted in HPI and below (No abnormalities other than what was mentioned in the H&P) <LEO MckinleyC - Last Filed: 12/20/20 13:57> Exam Narrative: Exam Narrative: Exam Narrative: GENERAL: This is a well-nourished, well-developed patient, in no apparent distress. HEAD: normocephalic, atraumatic. EYES: PERRL. Sclera clear/white. Vision is grossly intact. EARS: External ears normal, auditory canals clear and without drainage, TMs normal without perforation. Hearing grossly intact. NOSE: External nose normal with no obvious nasal discharge, nares without redness, no rhinorrhea. THROAT: Mucous membranes moist, posterior pharynx clear. NECK: Neck supple, non-tender without lymphadenopathy, masses or thyromegaly. CARDIOVASCULAR: Regular rate and rhythm without murmurs, gallops, or rubs. RE
[2020-12-20 16:00] VITALS: BP 168/78; PULSE 60; RESP 18; TEMP 36.9; O2SAT 99
[2020-12-20] MEDS: DONEPEZIL HCL 5 MG TABLET 20 MG PO (20:20)
[2020-12-20 23:49] VITALS: BP 188/84; PULSE 64; RESP 16; TEMP 36.1; O2SAT 97
[2020-12-21 05:37] LABS: Hematocrit 34.6 % (37.0-46.0); Hemoglobin 10.8 g/dL (12.4-15.3); Mean Corpuscular HGB Conc 31.2 g/dL (32.0-36.0); Mean Corpuscular Hemoglobin 29.1 pg (27.0-31.0); Mean Corpuscular Volume 93.3 fL (78.0-102.0); Mean Platelet Volume 9.2 fl (8.7-11.0); Platelet Count Result 125 K/mm3 (150-420); Red Blood Count 3.71 M/mm3 (4.70-6.10); Red Cell Distribution Width 13.8 % (11.6-14.4); White Blood Count 5.7 K/mm3 (4.8-10.8)
[2020-12-21 05:56] LABS: Alanine Aminotransferase 9 U/L (16-63); Albumin Level 3.2 g/dL (3.4-5.0); Alkaline Phosphatase 129 U/L (46-116); Anion Gap 12 mmol/L (8-16); Aspartate Amino Transferase 12 U/L (15-37); Bilirubin,Total 0.3 mg/dL (0.00-1.00); Blood Urea Nitrogen 10 mg/dL (7-18); Calcium 8.7 mg/dL (8.5-10.1); Carbon Dioxide 27 mmol/L (21-32); Chloride 105 mmol/L (98-108); Estimated CRCL calculation 44 ml/min; Estimated Glomerular Filt Rate 46; Glucose 95 mg/dL (70-99); Osmolality Calculated 297 mOsm/kg (285-295); Potassium 3.5 mmol/L (3.5-5.1); Sodium 144 mmol/L (136-145); Total Protein 6.6 g/dL (6.4-8.2)
[2020-12-21 08:00] VITALS: BP 184/83; PULSE 61; RESP 18; TEMP 36.6; O2SAT 97
[2020-12-21] MEDS: MIDODRINE HCL 2.5 MG TABLET 5 MG PO (08:18)
[2020-12-21] MEDS: CARBIDOPA/LEVODOPA 25/100 MG CR TABLET 1 TABLET PO ×2 (08:18→12:10)
[2020-12-21 08:19] VITALS: PULSE 61
[2020-12-21] MEDS: amantadine HCL 100 MG CAPSULE PO ×2 (08:19→12:10)
[2020-12-21] MEDS: ENOXAPARIN 30 MG/0.3 ML SYRINGE SUB-Q (08:19)
[2020-12-21] MEDS: METOPROLOL SUCCINATE EXT REL 25 MG TABCR PO (08:19)
--- NOTE | 2020-12-21 09:17 | PM.DS ---
DS: Admitting Diagnosis Admitting Diagnosis Admitting Diagnosis: Urinary tract infection altered mental status DS: Discharge Diagnosis Discharge Diagnosis (1) Cavitary lesion of lung: Code(s): J98.4 - Other disorders of lung Status: Acute (2) Parkinsons disease: Code(s): G20 - Parkinson's disease Status: Acute (3) Urinary tract infection: Code(s): N39.0 - Urinary tract infection, site not specified Status: Acute (4) Acute on chronic kidney failure: Qualifiers: Acute renal failure type: unspecified Chronic kidney disease stage: unspecified stage Qualified Code(s): N17.9 - Acute kidney failure, unspecified; N18.9 - Chronic kidney disease, unspecified Code(s): N17.9 - Acute kidney failure, unspecified; N18.9 - Chronic kidney disease, unspecified Status: Acute (5) Acute UTI: Code(s): N39.0 - Urinary tract infection, site not specified Status: Acute (6) Delirium due to general medical condition: Code(s): F05 - Delirium due to known physiological condition Status: Acute (7) Discoloration of skin of finger: Code(s): L81.9 - Disorder of pigmentation, unspecified Status: Acute (8) Chronic anemia: Code(s): D64.9 - Anemia, unspecified Status: Acute (9) Candidiasis, unspecified: Code(s): B37.9 - Candidiasis, unspecified Status: Acute DS: Summary Hospital Course Hospital Course: patient hospital course patient was treated with antibiotics he had a cavitary lesion in the right upper lung with Zosyn vancomycin. Patient with history of colorectal cancer and has a follow-up with his oncologist. Patient also had has a history of Parkinson's disease and dementia and continued his home medications. And patient developed candidiasis and was treated with IV fluconazole. Time Spent with Patient Time attestation: Total time spent providing and/or coordinating discharge services: 30 minutes Exam Const: General: comfortable and no acute distress Limitations: physical limitations HENMT: Ears: TM's normal bilaterally Eyes: General: appearance normal, both eyes and all related structures Neck: Neck: supple and no JVD Resp: Auscultation: clear to auscultation bilaterally Cardio: Rate: regular rate Rhythm: regular rhythm Urinary Catheter: Urinary Catheter: patent and draining Skin: General skin exam: normal color Neuro: Motor exam (neuro): Abnormal motor strength present Extrem: General: normal to inspection Psych: Other: flat affect DS: Data Data Completed and Pending Labs on day of discharge: Labs from last 24 hours 12/21/20 12/21/20 12/20/20 05:26 05:26 11:07 WBC 5.7 RBC 3.71 L Hgb 10.8 L Hct 34.6 L MCV 93.3 MCH 29.1 MCHC 31.2 L RDW 13.8 Plt Count 125 L MPV 9.2 Sodium 144 Potassium 3.5 Chloride 105 Carbon Dioxide 27 Anion Gap 12 BUN 10 Creatinine 1.50 H Estim Creat Clear Calc 44 Estimated GFR 46 L Glucose 95 Calculated Osmolality 297 H Calcium 8.7 Total Bilirubin 0.3 AST 12 L ALT 9 L Alkaline Phosphatase 129 H Total Protein 6.6 Albumin 3.2 L Vancomycin Trough 11.2 Preliminary micro results at discharge 12/16/20 21:47 Blood Culture - Preliminary Blood 12/16/20 21:47 Blood Culture - Preliminary Blood Discharge Plan Discharge Attending physician on discharge: Rojas Bernal Discharging Clinician: Rojas Bernal Anticipated Discharge Date/Time: 12/21/20 13:00 Patient Disposition: Home Health Service Activity: as tolerated Diet: regular Discharge Instructions: Follow-up with your primary care physician within 1 week Follow-up with your warehouse incentive selector /oncologist for a routine PET scan Follow-up with your neurologist for treatment of your Parkinson's disease Candidiasis infection How do I know if my symptoms are caused by a yeast infection?
--- NOTE | 2020-12-21 13:20 | PC.NURSE ---
13:05 Patient and POA given all discharge instructions. Patient and POA verbalized understanding. Patient is discharged to home. He left the floor via wheelchair with all belongings. Home meds given to POA. Instructed Home Health will contact them and come out to assess. Patient left in his sister's van.
--- NOTE | 2020-12-28 11:34 | PC.NURSE ---
Unable to contact for discharge call back.
== END 2020-12-21 13:05 | disposition home health service (06) | DRG 728 ==
LOC: CHSED 19:53 → CHS2ND 21:29
PROVIDERS: Nurse Practitioner; Nurse Practitioner Family; Admitting Provider Emergency Medicine; Emergency Provider Emergency Medicine; Visit Provider Emergency Medicine
DX: B37.49 Other urogenital candidiasis (principal); N17.9 Acute kidney failure, unspecified; N18.9 Chronic kidney disease, unspecified; J98.4 Other disorders of lung; G20 Parkinson's disease; R41.82 Altered mental status, unspecified; Z85.048 Personal history of other malignant neoplasm of rectum, rectosigmoid junction, and anus; Z93.2 Ileostomy status; Z93.6 Other artificial openings of urinary tract status
CPT/HCPCS: 36415; 70450; 71045; 71250; 80048; 80053; 80202; 81001; 83605; 83880; 84484; 85025; 85027; 87040; 87086; 87103; 93005; 96361; 96365; 96372; 96374; 97161; 97165; 97535; 99285; A9270; G0378; J1450; J1650; J2060; J2543; J3370; J7030; J7042

== ENCOUNTER 2020-12-25 17:17 | Inpatient (IN) | payer OTHER, MEDICARE, SELFPAY ==
[2020-12-25] VITALS (7 sets, daily range): BP systolic 163–179; BP diastolic 65–151; PULSE 63–68; RESP 13–33; TEMP 36.8; O2SAT 92–98; BMI 21.6
--- NOTE | ~2020-12-25 | XR_ITS ---
EXAMINATION: XR chest 1V portable EXAM DATE: 12/25/2020 18:06 INDICATION: Transient alteration of awareness. TECHNIQUE: Portable AP frontal chest x-ray was obtained. Comparison is made to prior examination from 12/16/2020. FINDINGS: Right upper lobe previously seen ill-defined masslike opacity has decreased in size. Can't identify the similar appearing left suprahilar opacity seen on CT today. Given rather rapid interval improvement, potentially could indicate that this was not cancer. Can't identify the right middle lob e nodule seen on CT. Some linear left midlung zone atelectasis unchanged. No pneumothorax or pleural effusion. Cardiomediastinal silhouette is normal. There are no osseous abnormalities identified. IMPRESSION: 1. Improvement in ill-defined right upper lobe masslike region compared to 12/16, could be postinfect ious. Cancer not excludable. 2. No acute cardiopulmonary findings. Reviewed, dictated and finalized at location A. IMPRESSION: 1. Improvement in ill-defined right upper lobe masslike region compared to 11/30 7, could be postinfectious. Cancer not excludable. 2. No acute cardiopulmonary findings.
--- NOTE | ~2020-12-25 | CT_ITS ---
EXAMINATION: CT brain wo con EXAM DATE: 12/25/2020 17:47 INDICATION: Transient altered awareness, dysphasia, dysphagia . Colorectal cancer. TECHNIQUE: Spiral CT of the head was performed without contrast. Axial, coronal and sagittal images were reviewed. The dose-length product (DLP) for this examination was 1338.58 mGy-cm. The exposure was tailored according to patient size, and iterative reconstruction (ASIR) was used as additional do se reduction technique. Comparison is made to prior examination from 12/17/2020. FINDINGS: There is no acute intraparenchymal hemorrhage. No evidence of intraparenchymal brain mass lesion. No evidence of acute infarction. Please note that initial head CT has limited sensitivity f or small or acute infarctions. There is mild periventricular and subcortical hypodensity, nonspecific but probably related to small vessel ischemic disease. There is mild prominence of the sulci and v entricles related to cerebral atrophy. There is intracranial carotid arteriosclerosis. There are n o extra-axial collections. There is no mass effect or midline shift. The orbits are unremarkable. Soft tissue is unremarkable. The visualized sinuses and mastoid air cells are well aerated. There i s no significant interval change. IMPRESSION: 1. No acute intracranial findings. 2. Chronic age related findings. Reviewed, dictated and finalized at location A.
--- NOTE | ~2020-12-25 | CT_ITS ---
EXAMINATION: CT diagnostic chest wo con EXAM DATE: 12/25/2020 19:14 INDICATION: Evaluate mass ABN CXR, evaluate RU lobe mass. TECHNIQUE: Spiral CT of the chest without contrast. Axial, coronal and sagittal images were reviewe d. Coronal maximum intensity pixel images of chest reviewed. The dose-length product (DLP) for this examination was 321.65 mGy-cm. The exposure was tailored according to patient size (auto mA exposur e control), and iterative reconstruction (ASIR) was used as additional dose reduction technique. Comp arison is made to prior examination from 12/17/2020. FINDINGS: Again there is ill-defined right upper lobe density centrally located in the superior segme nt, measuring approximately 3 cm. Again there is ill-defined left perihilar infiltrative masslike reg ion surrounding the left upper lobe anterior segmental bronchi at the hilum, similar size. These 2 op acities have similar appearance to each other. Again there is well-defined right middle lobe lobular nodule, measuring about 1.6 cm. Uncertain why the right upper lobe masslike opacity was poorly visual ized on today's chest x-ray, but there is no change in these findings from CT scan 8 days ago, likely chronic process such as cancer and/or cryptogenic organizing pneumonia. No evidence of acute airspace disease. The ascending aorta measures 4.3 cm, mildly dilated. There is mild bronchiectasis. There are no pleural or pericardial effusions. Tracheobronchial tree is patent . There is no mediastinal, hilar or axillary lymphadenopathy. There is no pneumothorax. Heart n ormal in size. There is minimal coronary arterial calcification, arterial sclerosis. Upper abdomen is unremarkable. There is thoracic spondylosis without osteoblastic or osteolytic lesions identifi ed. IMPRESSION: 1. Right upper lobe superior segmental, and left upper lobe anterior segmental hilar masslike opacit ies unchanged. 2. Lobular right middle lobe nodule unchanged. 3. Mildly aneurysmal ascending aorta. 4. No acute findings. Reviewed, dictated and finalized at location A. IMPRESSION: 1. Right upper lobe superior segmental, and left upper lobe anterior segmental hilar masslike opacities unchanged. 2. Lobular right middle lobe nodule unchanged. 3. Mildly aneurysmal ascending aorta. 4. No acute findings.
--- NOTE | ~2020-12-25 | CT_ITS ---
EXAMINATION: CT soft tissue neck wo con EXAM DATE: 12/25/2020 17:47 INDICATION: Dysphagia. Transient alteration of awareness. Colorectal cancer. TECHNIQUE: Spiral CT of the neck was performed without contrast. Axial, coronal and sagittal images were reviewed. The dose-length product (DLP) for this examination was 1338.58 mGy-cm. The exposure was tailored according to patient size (auto mA exposure control), and iterative reconstruction (ASI R) was used as additional dose reduction technique. Correlation is made to CT chest 12/17/2020. FINDINGS: Spiculated ill-defined right upper lobe masslike region most consistent with lung cancer. S imilar appearing left suprahilar masslike region. There is a left-sided Chemo-Port. Prevertebral soft tissue is normal in appearance. The thyroid gland is unremarkable. The submandibu lar and parotid glands are symmetric. There is no cervical lymphadenopathy. There are no masses id entified. The superior mediastinum is unremarkable. The airway is unremarkable. Parapharyngeal and pre-glottic fat planes are preserved. Limited evaluation of cervical vessels on this noncontra st study. There is cervical spondylosis and kyphosis. Severe right-sided facet arthropathy. IMPRESSION: 1. Unremarkable upper esophagus and airway. 2. Right upper lobe and left suprahilar ill-defined masslike regions. Reviewed, dictated and finalized at location A.
[2020-12-25 17:44] LABS: Glucose Point of Care 126 (65-105)
--- NOTE | 2020-12-25 17:45 | ECG_ITS ---
Measurements Intervals [place] Rate: 63 P: 64 ID: [id number] QRS: -1 QRSD: 110 T: 91 QT: 434 QTc: 445 Interpretive Statements SINUS RHYTHM EARLY PRECORDIAL R/S TRANSITION NONSPECIFIC ST & T-WAVE ABNORMALITY- DIFFUSE LEADS BASELINE ARTIFACT- I, II, III, AVR, AVL, AVF, V1-V6 BORDERLINE ECG Electronically Signed On 12-25-2020 18:16:31 CDT by Anthony Quijano D.O.
[2020-12-25 18:02] LABS: Basophils Absolute Auto 0.04 K/mm3 (0.00-0.10); Basophils Percent Auto 0.8 % (0.0-1.0); Eosinophils Absolute Auto 0.07 K/mm3 (0.02-0.50); Eosinophils Percent Auto 1.4 % (1.0-6.0); Hematocrit 34.2 % (37.0-46.0); Hemoglobin 10.9 g/dL (12.4-15.3); Immature Granulocyte Absolute 0.03 K/mm3 (0.00-0.00); Immature Granulocyte Percent A 0.6 % (0.0-0.0); Lymphocytes Absolute Auto 0.46 K/mm3 (1.10-4.50); Lymphocytes Percent Auto 9.2 % (18.0-42.0); Mean Corpuscular HGB Conc 31.9 g/dL (32.0-36.0); Mean Corpuscular Hemoglobin 29.4 pg (27.0-31.0); Mean Corpuscular Volume 92.2 fL (78.0-102.0); Mean Platelet Volume 9.5 fl (8.7-11.0); Monocytes Absolute Auto 0.44 K/mm3 (0.10-0.90); Monocytes Percent Auto 8.8 % (2.0-11.0); Neutrophils Percent Auto 79.2 % (50.0-70.0); Platelet Count Result 149 K/mm3 (150-420); Red Blood Count 3.71 M/mm3 (4.70-6.10); Red Cell Distribution Width 13.9 % (11.6-14.4)
[2020-12-25 18:18] LABS: Partial Thromboplastin Time 27.5 SEC (23.90-30.70); Prothrombin Time 10.9 Seconds (9.50-12.10)
[2020-12-25 18:25] LABS: Alanine Aminotransferase 9 U/L (16-63); Albumin Level 3.8 g/dL (3.4-5.0); Alkaline Phosphatase 162 U/L (46-116); Anion Gap 10 mmol/L (8-16); Aspartate Amino Transferase 17 U/L (15-37); Bilirubin,Total 0.5 mg/dL (0.00-1.00); Blood Urea Nitrogen 18 mg/dL (7-18); Calcium 9.2 mg/dL (8.5-10.1); Carbon Dioxide 30 mmol/L (21-32); Chloride 103 mmol/L (98-108); Estimated Glomerular Filt Rate 41; Glucose 91 mg/dL (70-99); Osmolality Calculated 297 mOsm/kg (285-295); Potassium 3.6 mmol/L (3.5-5.1); Sodium 143 mmol/L (136-145); Total Protein 7.4 g/dL (6.4-8.2)
[2020-12-25 18:26] LABS: BNP 99.5 pg/mL (0-100); Troponin I 11.4 ng/L (0.00-60.4)
--- NOTE | 2020-12-25 19:28 | PC.NURSE ---
PTS POA SISTER LINDA CONTACTED TO SPEAK WITH ERP DR. HONG ABOUT PATIENT DIAGNOSIS AND TREATMENT PLAN
[2020-12-25 20:16] LABS: Appearance Urine Sl Cloudy (Clear); Color Urine Yellow (Yellow)
[2020-12-25 20:17] LABS: Bilirubin Urine Negative (Negative); Blood Urine Negative (Negative); Glucose Urine UA Negative (Negative); Ketones Urine Trace (Negative); Nitrate Urine Negative (Negative); Protein Urine 1+ (Negative); Specific Grav Ur > 1.030 (1.010-1.020)
[2020-12-25 20:18] LABS: Add Urine Microscopic? YES; Leukocyte Esterase Ur Trace (Negative); Urobilinogen Urine 0.2 mg/dL (0.2-1.0); WBC Urine 21-30 /hpf (0-3)
[2020-12-25 20:19] LABS: Squamous Epithelial Cell Urine Few /hpf (Few)
[2020-12-25 20:20] LABS: Bacteria Urine Trace /hpf
--- NOTE | 2020-12-25 21:54 | PC.NURSE ---
Patient arrived from ED to floor at 2009. Patient A/O x2, person and place. Patient speaking with show card writer, ED nurse stated patient has been non verbal since arrival to ED. No skin issues noted. Urostomy and Colostomy intact, stoma pink. Bags emptied.
[2020-12-25] MEDS: LORazepam INJ (*CRX) 2 MG/ML VIAL 0.5 MG IV PUSH (23:00)
[2020-12-26] VITALS: BP 157/73; PULSE 61; RESP 18; TEMP 36.3; O2SAT 96
--- NOTE | 2020-12-26 04:42 | ED.AMS ---
HPI - Altered Mental Status General Source: family Mode of arrival: EMS Limitations: altered mental status History of Present Illness HPI narrative: Patient is poor historian, and he is not responding well now. Sister says he has had altered mental status for two days and has not eaten or been drinking any thing. She is worried he has another kidney infection again. Further histor is not obtainable. He has reportedly not had any known fever or chills. complaint: altered mental status Onset (ago): day(s) Timing confirmed by: family member Severity: moderate Consistency of symptoms: waxing and waning Context: history of similar presentation Related Data Home Medications Medication Instructions Recorded Confirmed amantadine HCl 100 mg PO TID 12/07/20 12/25/20 carbidopa-levodopa 2 tablet PO TID 12/07/20 12/25/20 donepezil 20 mg PO HS 12/07/20 12/25/20 midodrine 5 mg PO BID 12/07/20 12/25/20 sulfamethoxazole-trimethoprim 0.5 tablet PO HS 12/16/20 12/25/20 [Bactrim] Allergies Allergy/AdvReac Type Severity Reaction Status Date / Time No Known Allergies Allergy Verified 12/23/20 09:55 Review of Systems Constitutional: Constitutional: Reports no additional constitutional complaints Eyes: Eyes: Reports no additional eye complaints ENT: Reports system reviewed and no additional complaints, except as documented Cardiovascular: Cardiovascular: Reports no additional cardiovascular complaints Respiratory: Respiratory: Reports no additional respiratory complaints Gastrointestinal: Gastrointestinal: Reports no additional gastrointestinal complaints Genitourinary: Genitourinary: Reports no additional male genitourinary complaints Musculoskeletal: Musculoskeletal: Reports no additional musculoskeletal complaints Integumentary/Breasts: Skin/Breast: Reports system reviewed and no additional complaints, except as docu Neurologic: Reports system reviewed and no additional complaints, except as documented Psychiatric: Psychiatric: Reports no additional psychiatric complaints Endocrine: Endocrine: Reports no additional endocrine complaints Hematologic/Lymphatic: Hematologic/Lymphatic: Reports no additional hematologic/lymphatic complaints Allergic/Immunologic: Allergic/Immunologic: Reports no additional allergic/immunologic complaints PMFSH Past Medical History Medical History Colorectal cancer Parkinsons disease Urinary tract infection Surgical History Surgical History History of urostomy Ileostomy in place Family History Family History Mother Family history non-contributory Social History Social History Smoking status: Former smoker Tobacco type: cigarettes Alcohol intake: never Substance use: never Substance use type: does not use Additional living arrangements comments: Lives with his sister who provides care for him. He is not ambulatory. Gender identity (if verbalized by the patient): Male Spiritual care concerns: No Exam Const: General: ill appearing Limitations: altered mental status HENMT: Ears: TM's normal bilaterally Mouth: Yes Abnormal oral and palatal mucosa present (dry) Throat: posterior oropharynx normal Other: no obvious focal deficit of muscles of face. Eyes: Conjunctivae: conjunctivae normal Neck: Neck: normal visual inspection Chest: Chest palpation & inspection: normal inspection of the chest Resp: Effort & Inspection: normal respiratory effort Auscultation: clear to auscultation bilaterally Cardio: Rate: regular rate Rhythm: regular rhythm GI: GI Palp: Yes Soft to palpation (no obvious tenderness) Other: Urine in bag appears cloudy Urinary Catheter: Urinary Catheter: other (urine in bag appears cloudy) Skin: General skin exam: normal color
[2020-12-26 08:00] VITALS: BP 145/99; PULSE 85; RESP 18; TEMP 37.6; O2SAT 97
[2020-12-26 11:40] LABS: CRP 3.7 mg/dL (0.0-0.9)
[2020-12-26 11:48] LABS: Lactic Acid Reflex 0.8 mmol/L (0.4-2.0)
--- NOTE | 2020-12-26 12:07 | PM.IMHP ---
H&P: HPI History of Present Illness Date/Time: 12/26/20 12:07 this is a 70-year-old male that presented to our facility today with altered mental status. Patient is a poor historian all information obtained from POA or notes. patient has a past medical history of colorectal cancer, Parkinson's disease and chronic urinary tract sections. This patient has been admitted to our facility on 2 other occasions within 30-days. Patient was treated for urinary tract infection for each inpatient admission and was admitted for altered mental status. Patient does have an oncologist and was scheduled to get a PET scanthe day of his last admission. Patient PET scan was canceled his CT results was sent to his oncologist at that time, his oncologist decided that he did not need a repeat PET scan and scheduled him for an appointment. He did have a new mass to his left upper lobe. I did have a discussion with his sister and informed her that his condition was deteriorating and I recommended hospice. According to his sister several other people recommended hospice to her as well. She will think about placing patient in hospice. She does have a concern that if he is placed on hospice he will not be treated for his urinary tract infection. I informed her that hospice could continue the use of antibiotics for his urinary tract infection. His sister has also admitted that she can no longer care for this patient at home. His POA sister will consider hospice and get back with me tomorrow for referral if needed. His sister noted that once again while at home he became confused and she brought him back to our facility. Chief Complaint: AMS Review of Systems Review of Systems: ROS unobtainable: Yes unobtainable due to mental status PMFSH Past Medical History Medical History Colorectal cancer Parkinsons disease Urinary tract infection Surgical History Surgical History History of urostomy Ileostomy in place Family History Family History Mother Family history non-contributory Social History Social History Smoking status: Former smoker Tobacco type: cigarettes Alcohol intake: never Substance use: never Substance use type: does not use Additional living arrangements comments: Lives with his sister who provides care for him. He is not ambulatory. Gender identity (if verbalized by the patient): Male Spiritual care concerns: No Meds Home Medications and Allergies Home Medications Medication Instructions Recorded Confirmed Type amantadine HCl 100 mg PO TID 12/07/20 12/25/20 History carbidopa-levodopa 2 tablet PO TID 12/07/20 12/25/20 History donepezil 20 mg PO HS 12/07/20 12/25/20 History midodrine 5 mg PO BID 12/07/20 12/25/20 History sulfamethoxazole-trimethoprim 0.5 tablet PO HS 12/16/20 12/25/20 History [Bactrim] fluconazole 400 mg PO DAILY 15 Days #30 tablet 12/20/20 12/25/20 Rx ketoconazole 1 applic TOPICAL 2XW #120 ml 12/20/20 12/25/20 Rx ketoconazole 1 applic TOPICAL DAILY #60 g 12/20/20 12/25/20 Rx metoprolol succinate [Toprol XL] 25 mg PO QAM #30 tablet 12/20/20 12/25/20 Rx Allergies Allergy/AdvReac Type Severity Reaction Status Date / Time No Known Allergies Allergy Verified 12/23/20 09:55 Vital Signs Vital Signs - 24 hr 12/25/20 17:17 12/25/20 18:18 12/25/20 18:30 Temperature 98.3 F Pulse Rate 64 64 64 Respiratory Rate 17 23 H 33 H Blood Pressure 176/96 H Pulse Oximetry 92 12/25/20 18:31 12/25/20 18:45 12/25/20 18:46 Temperature Pulse Rate 64 68 63 Respiratory Rate 19 23 H 14 Blood Pressure 163/65 H 179/151 H Pulse Oximetry 12/25/20 19:49 12/26/20 00:00 12/26/20 08:00 Temperature 97.3 F L 99.6 F Pulse Rate 64 61 85 Respiratory Rate 13 18 18 Blood Pressure 163/65 H 157/73
[2020-12-26 14:50] VITALS: PULSE 85
[2020-12-26 15:40] VITALS: BP 145/85; PULSE 74; RESP 22; TEMP 37.2; O2SAT 96
--- NOTE | 2020-12-26 22:05 | PC.NURSE ---
pt resting in bed, bed alarm on, no evidence of distress noted
[2020-12-26 23:52] VITALS: BP 165/86; PULSE 78; RESP 18; TEMP 37.2; O2SAT 100
[2020-12-27 06:25] LABS: Hematocrit 37.5 % (37.0-46.0); Hemoglobin 11.8 g/dL (12.4-15.3); Mean Corpuscular HGB Conc 31.5 g/dL (32.0-36.0); Mean Corpuscular Hemoglobin 29.4 pg (27.0-31.0); Mean Corpuscular Volume 93.3 fL (78.0-102.0); Mean Platelet Volume 10.2 fl (8.7-11.0); Platelet Count Result 160 K/mm3 (150-420); Red Blood Count 4.02 M/mm3 (4.70-6.10); Red Cell Distribution Width 14.1 % (11.6-14.4); White Blood Count 4.5 K/mm3 (4.8-10.8)
[2020-12-27 06:33] LABS: Alanine Aminotransferase 14 U/L (16-63); Albumin Level 3.8 g/dL (3.4-5.0); Alkaline Phosphatase 165 U/L (46-116); Anion Gap 8 mmol/L (8-16); Aspartate Amino Transferase 16 U/L (15-37); Bilirubin,Total 0.5 mg/dL (0.00-1.00); Blood Urea Nitrogen 19 mg/dL (7-18); Calcium 9.1 mg/dL (8.5-10.1); Carbon Dioxide 30 mmol/L (21-32); Chloride 105 mmol/L (98-108); Estimated CRCL calculation 35 ml/min; Estimated Glomerular Filt Rate 37; Glucose 86 mg/dL (70-99); Osmolality Calculated 297 mOsm/kg (285-295); Potassium 3.7 mmol/L (3.5-5.1); Sodium 143 mmol/L (136-145); Total Protein 7.6 g/dL (6.4-8.2)
--- NOTE | 2020-12-27 07:51 | P.PN_ITS ---
Progress Note: A&P Assessment and Plan (1) Acute pyelonephritis: Code(s): N10 - Acute pyelonephritis Status: Acute Assessment and Plan: * UA with leukocyte Estrace and bacteria * Patient with a history of chronic urinary tract infection was placed on Bactrim 0.5 tablets daily for prevention * CRP elevated at 3.7 * Blood culture and urine culture pending * Continue Zosyn * Lactic acid within normal (2) Cavitary lesion of lung: Code(s): J98.4 - Other disorders of lung Status: Acute Assessment and Plan: * Patient will need to follow-up with his oncologist insurance counselor * Imaging indicates 2.5 cm lesion over the right upper lung (3) AMS (altered mental status): Code(s): R41.82 - Altered mental status, unspecified Status: Acute Assessment and Plan: * Possibly secondary to UTI versus worsening CVA versus worsening health * Patient receiving Zosyn for urinary tract infection pyelonephritis * Blood cultures and urine cultures pending * Hospice discussed with POA (4) Chronic anemia: Code(s): D64.9 - Anemia, unspecified Status: Acute Assessment and Plan: * Stable at baseline no active bleeding noted (5) Urinary tract infection: Code(s): N39.0 - Urinary tract infection, site not specified Status: Acute Assessment and Plan: * chronic * Patient on Zosyn * UA culture pending * Patient was receiving Bactrim 0.5 daily prophylactic * We have advised family to follow-up with urology on several occasions * (6) Parkinsons disease: Code(s): G20 - Parkinson's disease Status: Acute Assessment and Plan: * Continue medication * Patient has had a visit with his neurologist within a week medication adjustment made (7) Acute kidney injury: Code(s): N17.9 - Acute kidney failure, unspecified Status: Acute Assessment and Plan: * Possibly secondary to chronic urinary tract infection/pyelonephritis * Acute on chronic * Creatinine 1.66-->1.80 baseline appears to be1.50 * Started IV fluids fluid challenge * Renal dose medication * Avoid nephrotoxic agent * CMP in a.m. Review of Systems Review of Systems: ROS unobtainable: Yes unobtainable due to mental status Exam Narrative: Exam Narrative: GENERAL: Frail elderly man ,lethargic HEAD: normocephalic, atraumatic. EYES: PERRL. Sclera clear/white. Vision is grossly intact. EARS: External ears normal, auditory canals clear and without drainage, TMs normal without perforation. Hearing grossly intact. NOSE: External nose normal with no obvious nasal discharge, nares without redness, no rhinorrhea. THROAT: posterior pharynx clear. NECK: Neck supple, non-tender without lymphadenopathy, masses or thyromegaly. CARDIOVASCULAR: Regular rate and rhythm without murmurs, gallops, or rubs. RESPIRATORY: Clear to auscultation. Breath sounds equal bilaterally. No wheezes, rales, or rhonchi. GASTROINTESTINAL: Abdomen soft, non-tender, nondistended. Bowel sounds are active. No hepato-splenomegaly, or palpable masses. No guarding.colostomy and urostomy in place SKIN: warm, intact with no suspicious lesions or rash, good texture and turgor. NEURO: Lethargic EXTREMITIES: Normal range of motion. No edema. No calf tenderness. Negative Andrez ans sign bilaterally. BACK: Nontender without deformity or crepitance. No flank tenderness. Objective Data Vital Signs Vital Signs: Vital Signs - 24 hr 12/26/20 08:00 12/26/20 14:50 12/26/20
--- NOTE | 2020-12-27 07:51 | WPDPN ---
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 Imaging indicates 2.5 cm lesion over the right upper lung (3) AMS (altered mental status): Code(s): R41.82 - Altered mental status, unspecified Status: Acute Assessment and Plan: Possibly secondary to UTI versus worsening CVA versus worsening health Patient receiving Zosyn for urinary tract infection pyelonephritis Blood cultures and urine cultures pending Hospice discussed with POA (4) Chronic anemia: Code(s): D64.9 - Anemia, unspecified Status: Acute Assessment and Plan: Stable at baseline no active bleeding noted (5) Urinary tract infection: Code(s): N39.0 - Urinary tract infection, site not specified Status: Acute Assessment and Plan: chronic Patient on Zosyn UA culture pending Patient was receiving Bactrim 0.5 daily prophylactic We have advised family to follow-up with urology on several occasions (6) Parkinsons disease: Code(s): G20 - Parkinson's disease Status: Acute Assessment and Plan: Continue medication Patient has had a visit with his neurologist within a week medication adjustment made (7) Acute kidney injury: Code(s): N17.9 - Acute kidney failure, unspecified Status: Acute Assessment and Plan: Possibly secondary to chronic urinary tract infection/pyelonephritis Acute on chronic Creatinine 1.66-->1.80 baseline appears to be1.50 Started IV fluids fluid challenge Renal dose medication Avoid nephrotoxic agent CMP in a.m. Review of Systems Review of Systems: ROS unobtainable: Yes unobtainable due to mental status Exam Narrative: Exam Narrative: GENERAL: Frail elderly man ,lethargic HEAD: normocephalic, atraumatic. EYES: PERRL. Sclera clear/white. Vision is grossly intact. EARS: External ears normal, auditory canals clear and without drainage, TMs normal without perforation. Hearing grossly intact. NOSE: External nose normal with no obvious nasal discharge, nares without redness, no rhinorrhea. THROAT: posterior pharynx clear. NECK: Neck supple, non-tender without lymphadenopathy, masses or thyromegaly. CARDIOVASCULAR: Regular rate and rhythm without murmurs, gallops, or rubs. RESPIRATORY: Clear to auscultation. Breath sounds equal bilaterally. No wheezes, rales, or rhonchi. GASTROINTESTINAL: Abdomen soft, non-tender, nondistended. Bowel sounds are active. No hepato-splenomegaly, or palpable masses. No guarding.colostomy and urostomy in place SKIN: warm, intact with no suspicious lesions or rash, good texture and turgor. NEURO: Lethargic EXTREMITIES: Normal range of motion. No edema. No calf tenderness. Negative Homans sign bilaterally. BACK: Nontender without deformity or crepitance. No flank tenderness. Objective Data Vital Signs Vital Signs: Vital Signs - 24 hr 12/26/20 08:00 12/26/20 14:50 12/26/20 15:40 Temperature 99.6 F 99 F Pulse Rate 85 85 74 Respiratory Rate 18 22 H Blood Pressure 145/99 H 145/85 H Pulse Oximetry 97 96 12/26/20 23:52 Temperature 99 F Pulse Rate 78 Respiratory Rate 18 Blood Pressure 165/86 H Pulse Oximetry 100 Intake/Output Intake/Output: Intake & Output 12/24/20 12/25/20 12/26/20 12/27/20 23:59 23:59 23:59 23:59 Intake Total 50 450 350 Output Total 825 275 Balance 50 -375 75 Meds/Results Medications: Active Medications
[2020-12-27 08:00] VITALS: BP 139/74; PULSE 73; RESP 18; TEMP 36.4; O2SAT 97
[2020-12-27] MEDS: SODIUM CHLORIDE 0.9% IV 1,000 ML 100 ML IV CONT ×2 (08:05→16:52)
[2020-12-27] MEDS: ENOXAPARIN 40 MG/0.4 ML SYRINGE SUB-Q (11:46)
[2020-12-27 11:47] VITALS: PULSE 73
[2020-12-27] MEDS: MICONAZOLE NITRATE 2% CREAM 30 GM TUBE 1 APPLIC TOPICAL (11:47)
--- NOTE | 2020-12-27 14:55 | PC.NURSE ---
Urostomy bag peeling away and leaking, replaced and patient cleaned up
[2020-12-27 16:00] VITALS: BP 170/82; PULSE 66; RESP 16; TEMP 36.8; O2SAT 100
--- NOTE | 2020-12-27 20:45 | PC.NURSE ---
Patient's urostomy emptied of clear yellow urine and his colostomy emptied of soft brown bm. Patient refused to take his HS meds saying he isn't taking pills any more. Attempted again approximately 20 minutes later and patient still would not take the meds. Patient did let nurse give his IV Zosyn. Patient denies pain/complaints/needs @ this time. Call light in reach.
[2020-12-28] VITALS: BP 179/88; PULSE 76; RESP 18; TEMP 36.7; O2SAT 100
--- NOTE | 2020-12-28 01:30 | PC.NURSE ---
Patient now refusing to let nurse give his IV Zosyn. When ask patient why he told nurse he has enough in him. Patient asked nurse how long she would be here and when nurse said 7am patient said to try again around 6am. Let patient know that he has another dose due @ 8am, so 6am wouldn't work. Patient then told nurse if it's now or never, it's never. Patient denies pain/complaints/needs @ this time. No distress noted. Call light in reach.
[2020-12-28] MEDS: SODIUM CHLORIDE 0.9% IV 1,000 ML 100 ML IV CONT (03:14)
--- NOTE | 2020-12-28 03:20 | PC.NURSE ---
Patient now agreed to get the IV antibiotic (Zosyn). IV infusing @ this time. Denies pain/complaints/needs @ this time. No distress noted. Call light in reach.
--- NOTE | 2020-12-28 05:04 | PC.NURSE ---
Patient refuses to have labs drawn.
[2020-12-28 08:00] VITALS: BP 151/78; PULSE 73; RESP 16; TEMP 36.5; O2SAT 99
[2020-12-28] MEDS: ENOXAPARIN 40 MG/0.4 ML SYRINGE SUB-Q (08:30)
[2020-12-28] MEDS: CARBIDOPA/LEVODOPA 25/100 MG CR TABLET 1 TABLET PO ×3 (08:31→17:21)
[2020-12-28] MEDS: MIDODRINE HCL 2.5 MG TABLET 5 MG PO ×2 (08:31→17:21)
[2020-12-28] MEDS: FLUCONAZOLE 100 MG TABLET 400 MG PO (08:31)
[2020-12-28 08:32] VITALS: PULSE 73
[2020-12-28] MEDS: METOPROLOL SUCCINATE EXT REL 25 MG TABCR PO (08:32)
[2020-12-28] MEDS: amantadine HCL 100 MG CAPSULE PO ×3 (08:35→17:20)
[2020-12-28] MEDS: MICONAZOLE NITRATE 2% CREAM 30 GM TUBE 1 APPLIC TOPICAL (08:50)
[2020-12-28] MEDS: HYDROcodone/acetaminophen (*CRX) 7.5-325 MG TABLET 1 TAB PO (09:26)
[2020-12-28] MEDS: LORazepam INJ (*CRX) 2 MG/ML VIAL 0.5 MG IV PUSH (09:28)
--- NOTE | 2020-12-28 10:50 | P.DS_ITS ---
DS: Admitting Diagnosis Admitting Diagnosis Admitting Diagnosis: ams DS: Discharge Diagnosis Discharge Diagnosis (1) Acute pyelonephritis: Code(s): N10 - Acute pyelonephritis Status: Acute Assessment and Plan: * UA with leukocyte Estrace and bacteria * Patient with a history of chronic urinary tract infection was placed on Bactrim 0.5 tablets daily for prevention * CRP elevated at 3.7 * Blood culture preliminary no growth * urine culture no growth * Continue Bactrim for preventative * Lactic acid within normal (2) Cavitary lesion of lung: Code(s): J98.4 - Other disorders of lung Status: Acute Assessment and Plan: * Patient will need to follow-up with his oncologist project asst * Imaging indicates 2.5 cm lesion over the right upper lung (3) AMS (altered mental status): Code(s): R41.82 - Altered mental status, unspecified Status: Acute Assessment and Plan: * Secondary to deteriorating health * Patient receiving Zosyn for urinary tract infection pyelonephritis * Blood cultures and urine cultures no growth * Hospice discussed with POA patient will discharge home to hospice (4) Chronic anemia: Code(s): D64.9 - Anemia, unspecified Status: Acute Assessment and Plan: * Stable at baseline no active bleeding noted (5) Urinary tract infection: Code(s): N39.0 - Urinary tract infection, site not specified Status: Acute Assessment and Plan: * Ruled out * chronic * UA culture no growth * Patient was receiving Bactrim 0.5 daily prophylactic * POA contacted urology recommend consulting infectious disease. Infectious disease not needed UA culture with no growth * (6) Parkinsons disease: Code(s): G20 - Parkinson's disease Status: Acute Assessment and Plan: * Continue medication (7) Acute kidney injury: Code(s): N17.9 - Acute kidney failure, unspecified Status: Acute Assessment and Plan: * Possibly secondary to chronic urinary tract infection/pyelonephritis * Acute on chronic * Creatinine 1.66-->1.80 baseline appears to be1.50 * Started IV fluids fluid challenge * Renal dose medication * Avoid nephrotoxic agent * Patient refused blood draw this a.m. DS: Summary Hospital Course Hospital Course: This is a 70-year-old male that presented to our facility several times with altered mental status. Patient is a poor historian all information obtained from POA or notes. patient has a past medical history of c olorectal cancer, Parkinson's disease and chronic urinary tract sections. This patient has been admitted to our facility on 2 other occasions within 30-days. Patient was treated for urinary tract infection for each inpatient admission and was admitted for altered mental status. Patient does have an oncologist and was scheduled to get a PET scan the day of his last admission. Patient PET scan was canceled his CT results was sent to his oncologist at that time, his oncologist decided that he did not need a repeat PET scan and scheduled him for an appointment. He did have a new mass to his left upper lobe. I did have a discussion with his sister and informed her that his condition was deteriorating and I recommended hospice. According to his sister several other people recommended hospice to her as well. She has decided to place patient on hospice. She does have a concern that if he is placed on hospice he will not be treated for his urinary tract infection. Patient seems to have chronic leukocytes in his urine but his culture was negative for any growth. Patient will
--- NOTE | 2020-12-28 10:50 | PM.DS ---
DS: Admitting Diagnosis Admitting Diagnosis Admitting Diagnosis: ams DS: Discharge Diagnosis Discharge Diagnosis (1) Acute pyelonephritis: Code(s): N10 - Acute pyelonephritis Status: Acute Assessment and Plan: UA with leukocyte Estrace and bacteria Patient with a history of chronic urinary tract infection was placed on Bactrim 0.5 tablets daily for prevention CRP elevated at 3.7 Blood culture preliminary no growth urine culture no growth Continue Bactrim for preventative Lactic acid within normal (2) Cavitary lesion of lung: Code(s): J98.4 - Other disorders of lung Status: Acute Assessment and Plan: Patient will need to follow-up with his oncologist outsewer Imaging indicates 2.5 cm lesion over the right upper lung (3) AMS (altered mental status): Code(s): R41.82 - Altered mental status, unspecified Status: Acute Assessment and Plan: Secondary to deteriorating health Patient receiving Zosyn for urinary tract infection pyelonephritis Blood cultures and urine cultures no growth Hospice discussed with POA patient will discharge home to hospice (4) Chronic anemia: Code(s): D64.9 - Anemia, unspecified Status: Acute Assessment and Plan: Stable at baseline no active bleeding noted (5) Urinary tract infection: Code(s): N39.0 - Urinary tract infection, site not specified Status: Acute Assessment and Plan: Ruled out chronic UA culture no growth Patient was receiving Bactrim 0.5 daily prophylactic POA contacted urology recommend consulting infectious disease. Infectious disease not needed UA culture with no growth (6) Parkinsons disease: Code(s): G20 - Parkinson's disease Status: Acute Assessment and Plan: Continue medication (7) Acute kidney injury: Code(s): N17.9 - Acute kidney failure, unspecified Status: Acute Assessment and Plan: Possibly secondary to chronic urinary tract infection/pyelonephritis Acute on chronic Creatinine 1.66-->1.80 baseline appears to be1.50 Started IV fluids fluid challenge Renal dose medication Avoid nephrotoxic agent Patient refused blood draw this a.m. DS: Summary Hospital Course Hospital Course: This is a 70-year-old male that presented to our facility several times with altered mental status. Patient is a poor historian all information obtained from POA or notes. patient has a past medical history of colorectal cancer, Parkinson's disease and chronic urinary tract sections. This patient has been admitted to our facility on 2 other occasions within 30-days. Patient was treated for urinary tract infection for each inpatient admission and was admitted for altered mental status. Patient does have an oncologist and was scheduled to get a PET scan the day of his last admission. Patient PET scan was canceled his CT results was sent to his oncologist at that time, his oncologist decided that he did not need a repeat PET scan and scheduled him for an appointment. He did have a new mass to his left upper lobe. I did have a discussion with his sister and informed her that his condition was deteriorating and I recommended hospice. According to his sister several other people recommended hospice to her as well. She has decided to place patient on hospice. She does have a concern that if he is placed on hospice he will not be treated for his urinary tract infection. Patient seems to have chronic leukocytes in his urine but his culture was negative for any growth. Patient will continue on prophylactic Bactrim while on hospice. I informed her that hospice could continue the use of antibiotics for his urinary tract infection. His sister has also admitted that she can no longer care for this patient at home. Both the patient and his caregiver has agreed to hospice. Equipment has been delivered to patient's house for him to return home on hospice. P
[2020-12-28 16:00] VITALS: BP 163/78; PULSE 58; RESP 16; TEMP 36.4; O2SAT 98
--- NOTE | 2020-12-28 19:21 | PC.NURSE ---
Called report to Pam at Hospice. Continue to wait for the ambulance to transport patient.
--- NOTE | 2020-12-28 20:28 | PC.NURSE ---
Patient transferred to home by [facility]. Hospice aware of transfer. Patient alert x1. No signs of distress.
[2020-12-28 20:29] VITALS: BP 142/69; PULSE 82; RESP 16; TEMP 36.4; O2SAT 98
--- NOTE | 2021-01-06 13:04 | PC.NURSE ---
Unable to contact for discharge call back.
== END 2020-12-28 20:25 | disposition hospice, home (50) | DRG 690 ==
LOC: CHSED 19:52 → CHS2ND 19:56
PROVIDERS: Nurse Practitioner; Admitting Provider Emergency Medicine; Emergency Provider Emergency Medicine; Visit Provider Emergency Medicine
DX: N10 Acute pyelonephritis (principal); G20 Parkinson's disease; Z85.048 Personal history of other malignant neoplasm of rectum, rectosigmoid junction, and anus; Z93.2 Ileostomy status; Z93.6 Other artificial openings of urinary tract status; Z87.891 Personal history of nicotine dependence; N17.9 Acute kidney failure, unspecified; R91.8 Other nonspecific abnormal finding of lung field; R41.82 Altered mental status, unspecified; Z51.5 Encounter for palliative care
CPT/HCPCS: 36415; 70450; 70490; 71045; 71250; 80053; 81001; 82948; 83605; 83880; 84484; 85025; 85027; 85610; 85730; 86140; 87040; 87086; 93005; 96374; 99285; A9270; J1650; J2060; J2543; J7030

== ENCOUNTER 2020-12-31 16:11 | Observation (INO) | payer OTHER, MEDICARE, SELFPAY ==
[2020-12-31] VITALS (7 sets, daily range): BP systolic 146–187; BP diastolic 77–90; PULSE 79–89; RESP 20; TEMP 36.8–36.9; O2SAT 97–100; BMI 21.4
[2020-12-31 17:07] LABS: Basophils Absolute Auto 0.04 K/mm3 (0.00-0.10); Basophils Percent Auto 0.7 % (0.0-1.0); Eosinophils Absolute Auto 0.12 K/mm3 (0.02-0.50); Eosinophils Percent Auto 2.2 % (1.0-6.0); Hematocrit 36.1 % (37.0-46.0); Hemoglobin 11.6 g/dL (12.4-15.3); Immature Granulocyte Absolute 0.02 K/mm3 (0.00-0.00); Immature Granulocyte Percent A 0.4 % (0.0-0.0); Lymphocytes Absolute Auto 0.37 K/mm3 (1.10-4.50); Lymphocytes Percent Auto 6.7 % (18.0-42.0); Mean Corpuscular HGB Conc 32.1 g/dL (32.0-36.0); Mean Corpuscular Hemoglobin 29.4 pg (27.0-31.0); Mean Corpuscular Volume 91.4 fL (78.0-102.0); Mean Platelet Volume 9.5 fl (8.7-11.0); Monocytes Absolute Auto 0.28 K/mm3 (0.10-0.90); Monocytes Percent Auto 5.1 % (2.0-11.0); Neutrophils Absolute Auto 4.7 K/mm3 (1.7-7.2); Neutrophils Percent Auto 84.9 % (50.0-70.0); Platelet Count Result 183 K/mm3 (150-420); Red Blood Count 3.95 M/mm3 (4.70-6.10); Red Cell Distribution Width 13.8 % (11.6-14.4); White Blood Count 5.5 K/mm3 (4.8-10.8)
[2020-12-31] MEDS: SODIUM CHLORIDE 0.9% IV 1,000 ML 999 ML IV CONT (17:07)
[2020-12-31 17:20] LABS: Alanine Aminotransferase 10 U/L (16-63); Albumin Level 3.9 g/dL (3.4-5.0); Alkaline Phosphatase 162 U/L (46-116); Anion Gap 10 mmol/L (8-16); Aspartate Amino Transferase 16 U/L (15-37); Bilirubin,Total 0.4 mg/dL (0.00-1.00); Blood Urea Nitrogen 14 mg/dL (7-18); Calcium 9.7 mg/dL (8.5-10.1); Carbon Dioxide 28 mmol/L (21-32); Chloride 104 mmol/L (98-108); Estimated CRCL calculation 38 ml/min; Estimated Glomerular Filt Rate 42; Glucose 111 mg/dL (70-99); Osmolality Calculated 295 mOsm/kg (285-295); Potassium 3.6 mmol/L (3.5-5.1); Sodium 142 mmol/L (136-145); Total Protein 7.9 g/dL (6.4-8.2)
--- NOTE | 2020-12-31 17:50 | ED.WEAKNESS ---
HPI - Weakness General Chief complaint: Weakness Stated complaint: amb Source: patient and EMS Mode of arrival: EMS Limitations: altered mental status History of Present Illness HPI Narrative: this is a 70-year-old male him with a history of colorectal cancer with some lung mass was recently discharged on hospice and sent home, apparently family dynamics have intervened where his sister has been made [id number] over his . Apparently his power of banking attorney which is sister can't take care of him any longer patient has been weak and and has altered mental status with no chest pain no shortness of breath no abdominal pain does have a colostomy bag. Currently afebrile and his vitals are stable. Hospice was consulted on upon discharge but apparently hospice Never a saw the patient. MD Complaint: generalized weakness Onset (ago): week(s) Duration: constant Location: generalized Migration: none Severity: moderate Related Data Home Medications Medication Instructions Recorded Confirmed amantadine HCl 100 mg PO TID 12/07/20 12/25/20 carbidopa-levodopa 2 tablet PO TID 12/07/20 12/25/20 donepezil 20 mg PO HS 12/07/20 12/25/20 midodrine 5 mg PO BID 12/07/20 12/25/20 sulfamethoxazole-trimethoprim 0.5 tablet PO HS 12/16/20 12/25/20 [Bactrim] bisacodyl 10 mg RECTAL DAILY 12/31/20 12/31/20 docusate sodium 100 mg PO BID 12/31/20 12/31/20 lorazepam 1 mg PO .q4hr PRN 12/31/20 12/31/20 morphine concentrate 10 mg PO Q4-5H PRN 12/31/20 12/31/20 Allergies Allergy/AdvReac Type Severity Reaction Status Date / Time No Known Allergies Allergy Verified 12/31/20 17:29 Review of Systems Review of Systems: All systems reviewed & are unremarkable except as noted in HPI and below PMFSH Past Medical History Medical History Colorectal cancer Parkinsons disease Urinary tract infection Surgical History Surgical History History of urostomy Ileostomy in place Family History Family History Mother Family history non-contributory Social History Social History Smoking status: Former smoker Tobacco type: cigarettes Alcohol intake: never Substance use: never Substance use type: does not use Additional living arrangements comments: Lives with his sister who provides care for him. He is not ambulatory. Gender identity (if verbalized by the patient): Male Spiritual care concerns: No Exam Const: General: no acute distress Orientation/consciousness: patient oriented x3 HENMT: Head: normal to inspection Eyes: Conjunctivae: conjunctivae normal Pupils: Equal, round and reactive pupils present Neck: Neck: normal visual inspection, no lymphadenopathy and no meningeal signs Chest: Chest palpation & inspection: normal inspection of the chest Resp: Effort & Inspection: normal respiratory effort Auscultation: diminished lung sounds Cardio: Rate: regular rate Rhythm: regular rhythm GI: GI Palp: Yes Soft to palpation Other: colostomy bag : General: Yes no CVA tenderness Urinary Catheter: Urinary Catheter: urine cloudy Back/Spine/Pelvis: Back: no CVA tenderness Skin: General skin exam: normal color Neuro: General: patient oriented x3 Extrem: General: normal to inspection and no pedal edema Psych: Appearance: disheveled Course Course Emergency Course: patient brought in via EMS for weakness would not respond to my questions apparently was answering more with nurses questions. Otherwise [id number] which is sister states that he has become more weak and not able to manage the patient at home patient had a consult with hospice prior to discharge on his last admission but hospice do not see the patient as of yet. Vital Signs Vital signs: Vital Signs Temperature 36.8 C 0
--- NOTE | 2020-12-31 19:49 | ADMGEN ---
This patient, Viktor Burk, was admitted to 2nd Floor Room 205-2. Patient/family oriented to hospital policies and general routines including ID bracelet, bed and alarms, visiting hours, pain management, procedures, bathroom and other care routines, personal items, smoking policy, room service/diet, and visiting hours. Discussed plan of care with Caregiver Romina. Caregiver states he is to see hospice tomorrow and go to retirement. Information on how to activate the Rapid Response Team has been discussed. Patient/Family are encouraged to report perceived risks to care and to ask questions if they do not understand what they are told or what they should do.
[2020-12-31] MEDS: DONEPEZIL HCL 5 MG TABLET 20 MG PO (20:49)
[2020-12-31] MEDS: LACTATED RINGERS 1,000 ML 100 ML IV CONT (20:50)
[2021-01-01] VITALS: BP 171/83; PULSE 71; RESP 18; TEMP 37.3; O2SAT 98
[2021-01-01 01:15] VITALS: BP 164/80; PULSE 82; TEMP 37.1; O2SAT 96
[2021-01-01] MEDS: LACTATED RINGERS 1,000 ML 100 ML IV CONT (06:17)
[2021-01-01 08:00] VITALS: BP 167/96; PULSE 74; RESP 16; TEMP 36.8; O2SAT 96
[2021-01-01] MEDS: FLUCONAZOLE 100 MG TABLET 400 MG PO (09:21)
[2021-01-01] MEDS: CARBIDOPA/LEVODOPA 25/100 MG CR TABLET 2 TABLET PO ×2 (09:22→11:59)
[2021-01-01] MEDS: DOCUSATE SODIUM 100 MG CAPSULE PO (09:22)
[2021-01-01 09:23] VITALS: PULSE 74
[2021-01-01] MEDS: METOPROLOL SUCCINATE EXT REL 25 MG TABCR PO (09:23)
[2021-01-01] MEDS: amantadine HCL 100 MG CAPSULE PO ×2 (09:25→11:59)
[2021-01-01 11:52] LABS: Add Urine Microscopic? NO; Appearance Urine Clear (Clear); Bilirubin Urine Negative (Negative); Blood Urine Negative (Negative); Color Urine Yellow (Yellow); Glucose Urine UA Negative (Negative); Ketones Urine Negative (Negative); Leukocyte Esterase Ur Negative (Negative); Nitrate Urine Negative (Negative); Protein Urine Negative (Negative); Urobilinogen Urine 0.2 mg/dL (0.2-1.0)
[2021-01-01 13:31] LABS: INR 1.1; Prothrombin Time 11.4 Seconds (9.50-12.10)
--- NOTE | 2021-01-01 15:25 | PM.SD2 ---
Same Day Admit/Disch: HPI History of Present Illness Chief complaint: WEAKNESS UTI DEHYDRATION Narrative: Viktor Burk is a 70 year old male who is being admitted for AMS and is being treated for a UTI that was found on 12/25/2020. Pt has a Hx of colorectal cancer, Parkinson's disease, and chronic urinary tract sections. Pt was sent home with Hospice after his last admission here. According to other documentation from last admission and ER documentation the POA, Pt's sister, is unable to take care of the Pt at home any more. The POA states the Pt has AMS. Upon interviewing the Pt he asked if a toxicology was done and if it included rat poison. I asked why he would be asking this and he stated that he though he was being poisoned at home with rat poison as there is some white clumpy matter at the bottom of his drinking cup at home and that he has not been feeling right since his Colorectal surgery for CA. His PT/INR today was 11.4 and 1. Acording to Case Management, Gina, Pt wanted to change his POA to his first . Please read her note to that end. Pt denies CP, SOB, Abdominal pain. He admits to LE weakness and not being able to get around the home. [facility] Past Medical History Medical History Colorectal cancer Parkinsons disease Urinary tract infection Surgical History Surgical History History of urostomy Ileostomy in place Family History Family History Mother Family history non-contributory Social History Social History Smoking status: Never smoker Tobacco type: cigarettes Alcohol intake: never Substance use: never Substance use type: does not use Additional living arrangements comments: Lives with his sister who provides care for him. He is not ambulatory. Gender identity (if verbalized by the patient): Male Spiritual care concerns: No Same Day Admit/Disch: Med Pre-admit Medications Home Medications Medication Instructions Recorded Confirmed Type amantadine HCl 100 mg PO TID 12/07/20 12/31/20 History carbidopa-levodopa 2 tablet PO TID 12/07/20 12/31/20 History donepezil 20 mg PO HS 12/07/20 12/31/20 History midodrine 5 mg PO BID 12/07/20 12/31/20 History sulfamethoxazole-trimethoprim 0.5 tablet PO HS 12/16/20 12/31/20 History [Bactrim] fluconazole 400 mg PO DAILY 15 Days #30 tablet 12/20/20 12/31/20 Rx ketoconazole 1 applic TOPICAL 2XW #120 ml 12/20/20 12/31/20 Rx ketoconazole 1 applic TOPICAL DAILY #60 g 12/20/20 12/31/20 Rx metoprolol succinate [Toprol XL] 25 mg PO QAM #30 tablet 12/20/20 12/31/20 Rx acetaminophen 650 mg RECTAL Q4-6H PRN #50 ea 12/28/20 12/31/20 Rx scopolamine base 1 patch TRANSDERMAL Q72H PRN #10 ea 12/28/20 12/31/20 Rx bisacodyl 10 mg RECTAL DAILY 12/31/20 12/31/20 History docusate sodium 100 mg PO BID 12/31/20 12/31/20 History lorazepam 1 mg PO .q4hr PRN 12/31/20 12/31/20 History morphine concentrate 10 mg PO Q4-5H PRN 12/31/20 12/31/20 History Exam Const: General: cooperative, comfortable, no acute distress and tired appearing Nutritional Appearance: average body habitus HENMT: Head: normal to inspection and atraumatic Ears: hearing grossly normal bilaterally Neck: Neck: normal visual inspection and no JVD Resp: Effort & Inspection: normal respiratory effort (though a little shallow) and Actively coughing (occasional) Auscultation: clear to auscultation bilaterally Cardio: Rate: regular rate Heart sounds: S1 normal heart sound present, S2 normal heart sound present, no click, no gallops, no murmurs and no rubs GI: Inspection: other (Urostomy in place and draining, Ileostomy in place and draining) Other: Stomas are a little pale Skin: General skin exam: pallor Lesions: no lesions Rashes: no rashes Trauma: no lacerations or abrasions Ne
--- NOTE | 2021-01-01 16:20 | PC.NURSE ---
Discharge instructions and POA paperwork faxed to [facility].
--- NOTE | 2021-01-01 19:25 | PC.NURSE ---
1515 Patient assisted to wheelchair with assist of 2. Patient able to stand and turn without difficulty. Patient with medications and personal belongings with residential staff member pushing patient in wheelchair. Patient discharged to [facility].
== END 2021-01-01 15:15 ==
LOC: CHSED 17:55 → CHS2ND 18:12
PROVIDERS: Nurse Practitioner Family; Admitting Provider Emergency Medicine; Emergency Provider Emergency Medicine; Visit Provider Emergency Medicine
DX: E86.0 Dehydration (principal); R53.1 Weakness; R91.8 Other nonspecific abnormal finding of lung field; G20 Parkinson's disease; Z85.048 Personal history of other malignant neoplasm of rectum, rectosigmoid junction, and anus; Z93.2 Ileostomy status; Z93.6 Other artificial openings of urinary tract status; Z87.891 Personal history of nicotine dependence; N39.0 Urinary tract infection, site not specified
CPT/HCPCS: 36415; 80053; 81003; 85025; 85610; 87040; 96361; 96365; 99285; A9270; G0378; J0696; J7030; J7120